=== PATIENT | male | born 1960 | race Caucasian/White ===

== ENCOUNTER 2018-08-27 15:48 | Inpatient (IN) | payer BC, SELFPAY ==
[2018-08-27] VITALS (17 sets, daily range): BP systolic 123–145; BP diastolic 68–96; PULSE 97–109; RESP 18–20; TEMP 36.4–37; O2SAT 83–100
--- NOTE | 2018-08-27 15:51 | W.ED.GENAD ---
Discharge Plan Disposition Patient Disposition: [facility] INPATIENT Condition: Fair Discharge Details Chief Complaint: Orthopedic Clinical Impression: Fracture tibia/fibula Reason For Visit: CLOSED FX R TIB/FIB Admit Date/Time: 08/27/18 17:17 Admit Provider: Robert Kirk Attending Provider: Robert Kirk Primary Care Provider: DANIEL MEDEROS ED Provider: Nina Gaxiola Discharge Data Discharge Date/Time-TO BE ENTERED AT DEPARTURE: 08/27/18 18:44 Medical Decision Making Patient is a 57 year old male with history of well controlled diabetes and peripheral neuropathy, presenting via EMS with c/c of RLE pain. 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 Skis did release. Reports rotational injury to the RLE. Unable to bear weight. Notable deformity to the distal 1/3 of the tibia with clear movement of the fracture site. He is able to lift up the leg, pain with rotational movements. Appears comfortable when supported. Patient has no sensation in BLE at baseline associated with diabetic neuropathy. He is currently on trial of Naltrexone which he reports he is using, through advisement of [facility], for his neuropathy. Denies other injury at the time of the incident. Was helmeted, no head injury, no neck or back pain, no LOC. Distal pulses intact. As patient is on Naltrexone, medications for pain is limited. Will give Tylenol. Will discuss toradol with orthopedics and consult with Pain Center at [facility] regarding Naltrexone. Reviewed XR, patient has spiral fracture of the distal 1/3 tibia and fibula. Knee and ankle appear intact. Atherosclerotic changes noted. Consulted with Dr. Kirk, he advised that patient will need admission, pain control, immobilization with plan for surgical intervention tomorrow. Discussed use of Toradol, he advised that this would be acceptable. XR read by radiology: FINDINGS: Bones/joints: There is a nondisplaced spiral fracture of the distal tibia diaphysis with minimal anterior medial angulation. There is an oblique/spiral fracture of the distal fibula metadiaphyseal junction with approximately 1/2 shaft width of anterior medial displacement. The knee and ankle joints are intact. Mild degenerative arthrosis of the knee and ankle joints. Small knee joint effusion. Soft tissues: Normal. Vasculature: Atherosclerosis throughout the calf. Other findings: Changes of prior anterior cruciate ligament repair. IMPRESSION: Acute fractures of the distal tibia and fibula. Consulted with Pain at [facility], spoke with Dr. Palmer, who advised that patient is on a very low dose of Naltrexone and that we would be able to break through the blockade with a slightly increased dose of narcotics if needed over the next 8-12 hours. Advised holding doses postoperatively, may begin Naltrexone again once cleared from narcotics for 24 hours. Advised that over the next 12 hours, if narcotics are needed to monitor with pulse ox. Dr. Kirk evaluated the patient, discussed surgery, places Spangler splint. Has asked the patient receive CT to ensure no violation of the ankle joint, this order has been placed and will be obtained while in the ED. He will admit patient overnight with plan for surgery tomorrow. HPI General Mode of arrival: EMS. Date/Time Provider Initiated Documentation: 08/27/18 15:51. Limitations to Documentation: no limitations. Information obtained by: patient. History of Present Illness 57 year old M presents to the emergency department with the chief complaint of RLE skiing injury, described as severe, with intensity rated at 10. Quality is described as stabbing, and is localized to the right and lower extremity. Patient reports no radiation. Patient started experiencing this minute(s) and it has been constant. Immobilization improves symptom(s), Movement worsens symptoms . Patient notes denies chest pain, cough, fever/chills, headaches, nausea/vomiting, rash and shortness of breath. Patient did receive the following treatments prior to arrival, splint Related Data Home Medications Medication Instructions Recorded Confirmed acetaminophen [Tylenol Arthritis 650 mg PO BID 08/27/18 08/27/18 Pain] dulaglutide [Trulicity] 1.5 mg SUBCUT QWEEK 08/27/18 08/27/18 duloxetine [Cymbalta] 30 mg PO BID 08/27/18 08/27/18 insulin lispro [Humalog U-100 70 unit SUBCUT DAILY 08/27/18 08/27/18 Insulin] lisinopril 20 mg PO DAILY 08/27/18 08/27/18 naltrexone 4.5 mg PO DAILY 08/27/18 08/27/18 pregabalin [Lyrica] 100 mg PO BID 08/27/18 08/27/18 simvastatin [Zocor] 20 mg PO QPM 08/27/18 08/27/18 Allergies Allergy/AdvReac Type Severity Reaction Status Date / Time Penicillins Allergy Unverified 08/27/18 15:57 Review of Systems Constitutional Reports as per HPI, Denies chills, Denies fever(s) and Denies headache(s) Eyes Denies change in vision ENT Denies headache(s) Cardiovascular Reports as per HPI and Denies syncope Respiratory Reports as per HPI and Denies cough Gastrointestinal Denies abdominal pain, Denies nausea and Denies vomiting Musculoskeletal Reports as per HPI, Reports abnormal gait (has not ambulated since injury) and Reports numbness (chronic severe bilateral lower extremity neuropathy) Integumentary/Breasts Reports as per HPI, Denies rash and Denies wounds Neurologic Reports abnormal gait (has not ambulated since injury), Denies syncope, Denies headache(s) and Reports numbness (chronic severe bilateral lower extremity neuropathy) PFS Social History Smoking/Tobacco Use Status: Never Exam Const General: cooperative, healthy appearing, comfortable, no acute distress, well developed and well groomed Nutritional Appearance: well nourished and overweight Orientation: alert and awake Eyes General: appearance normal, both eyes and all related structures Neck Neck: normal visual inspection, full ROM, trachea midline and supple Chest Chest: normal inspection of the chest, normal palpation of entire chest wall, no crepitus and no localized rib tenderness Resp Effort & Inspection: normal respiratory effort, able to speak in complete sentences and no respiratory distress Auscultation: clear to auscultation bilaterally Cardio Rate: regular rate Rhythm: regular rhythm Heart Sounds: S1 normal and S2 normal Back/Spine/Pelvis Cervical Spine: normal cervical lordosis and cervical ROM normal Thoracic/Lumbar Spine: thoracic and lumbar spine normal to inspection, No thoracic spinal tenderness and No lumbar spinal tenderness Pelvis: no pain with anterior-posterior compression and no pain with lateral compression Skin General skin exam: other (cracked skin to right foot, appears old) Neuro General: alert, awake and oriented x3 Cranial Nerves: CN's II-XI intact bilaterally Cognition: normal cognition Speech: speech normal Gait: gait abnormal (unable to bear weight on RLE) Motor: tone not normal throughout (limited in RLE secondary to deformity and pain. Able to hold up leg well), no pronator drift, no movement abnormalities noted and no fasciculations Sensory Exam: no sensory deficits noted Extrem Right lower extremity: normal capillary refill, no joint enlargement, hip/thigh Details: normal to inspection, knee (did not range, no pain with palpation) Details: normal to inspection, lower leg (deformity), ankle (limited ROM, pain in distal tibia) and foot Details: normal capillary refill; abnormal to inspection (crack in skin as above); abnormal to inspection (deformity to the lower 1/3 of the tibia. No opening in the skin, no discolo), ROM limited (limited ankle secondary to injury) and no edema Psych Appearance: grossly normal and well kempt Mental Status: mental status grossly normal Speech and Movement: speech and movement normal
--- NOTE | 2018-08-27 16:00 | DI.RAD_ITS ---
SYMPTOM/DIAGNOSIS: TRAUMA RIGHT LEG: A mildly displaced spiral fracture of the distal shaft and metaphysis of the tibia is demonstrated. Also there is a moderately displaced oblique fracture of the distal fibula. Incidental note is made of vascular calcification below the knee and in the mid and distal leg. Query: Is the patient a diabetic? In addition, we have images of the right knee showing the patient is status post ACL repair. There are moderate degenerative changes involving the knee. There is no evidence of an acute fracture or dislocation.
--- NOTE | 2018-08-27 16:16 | ED.GENADUL_ITS ---
Discharge Plan Disposition Patient Disposition: [facility] INPATIENT Condition: Fair Discharge Details Chief Complaint: Orthopedic Clinical Impression: Fracture tibia/fibula Reason For Visit: CLOSED FX R TIB/FIB Admit Date/Time: 08/27/18 17:17 Admit Provider: Robert Kirk Attending Provider: Robert Kirk Primary Care Provider: DANIEL MEDEROS ED Provider: Nina Gaxiola Discharge Data Discharge Date/Time-TO BE ENTERED AT DEPARTURE: 08/27/18 18:44 Medical Decision Making Patient is a 57 year old male with history of well controlled diabetes and peripheral neuropathy, presenting via EMS with c/c of RLE pain. 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 Skis did release. Reports rotational injury to the RLE. Unable to bear weight. Notable deformity to the distal 1/3 of the tibia with clear movement of the fracture site. He is able to lift up the leg, pain with rotational movements. Appears comfortable when supported. Patient has no sensation in BLE at baseline associated with diabetic neuropathy. He is currently on trial of Naltrexone which he reports he is using, through advisement of [facility], for his neuropathy. Denies other injury at the time of the incident. Was helmeted, no head injury, no neck or back pain, no LOC. Distal pulses intact. As patient is on Naltrexone, medications for pain is limited. Will give Tylenol. Will discuss toradol with orthopedics and consult with Pain Center at [facility] regarding Naltrexone. Reviewed XR, patient has spiral fracture of the distal 1/3 tibia and fibula. Knee and ankle appear intact. Atherosclerotic changes noted. Consulted with Dr. Kirk, he advised that patient will need admission, pain control, immobilization with plan for surgical intervention tomorrow. Discussed use of Toradol, he advised that this would be acceptable. XR read by radiology: FINDINGS: Bones/joints: There is a nondisplaced spiral fracture of the distal tibia diaphysis with minimal anterior medial angulation. There is an oblique/spiral fracture of the distal fibula metadiaphyseal junction with approximately 1/2 shaft width of anterior medial displacement. The knee and ankle joints are intact. Mild degenerative arthrosis of the knee and ankle joints. Small knee joint effusion. Soft tissues: Normal. Vasculature: Atherosclerosis throughout the calf. Other findings: Changes of prior anterior cruciate ligament repair. IMPRESSION: Acute fractures of the distal tibia and fibula. Consulted with Pain at [facility], spoke with Dr. Palmer, who advised that patient is on a very low dose of Naltrexone and that we would be able to break through the blockade with a slightly increased dose of narcotics if needed over the next 8- 12 hours. Advised holding doses postoperatively, may begin Naltrexone again once cleared from narcotics for 24 hours. Advised that over the next 12 hours, if narcotics are needed to monitor with pulse ox. Dr. Kirk evaluated the patient, discussed surgery, places Spangler splint. Has asked the patient receive CT to ensure no violation of the ankle joint, this order has been placed and will be obtained while in the ED. He will admit patient overnight with plan for surgery tomorrow. HPI General Mode of arrival: EMS . Date/Time Provider Initiated Documentation: 08/27/18 15:51 . Limitations to Documentation: no limitations . Information obtained by: patient . History of Present Illness 57 year old M presents to the emergency department with the chief complaint of RLE skiing injury, described as severe, with intensity rated at 10. Quality is described as stabbing, and is localized to the right and lower extremity. Patient reports no radiation. Patient started experiencing this minute(s) and it has been constant. Immobilization improves symptom(s), Movement worsens symptoms . Patient notes denies chest pain, cough, fever/chills, headaches, nausea/vomiting, rash and shortness of breath. Patient did receive the following treatments prior to arrival, splint Related Data Home Medications Medication Instructions Recorded Confirmed acetaminophen [Tylenol Arthritis 650 mg PO BID 08/27/18 08/27/18 Pain] dulaglutide [Trulicity] 1.5 mg SUBCUT QWEEK 08/27/18 08/27/18 duloxetine [Cymbalta] 30 mg PO BID 08/27/18 08/27/18 insulin lispro [Humalog U-100 70 unit SUBCUT DAILY 08/27/18 08/27/18 Insulin] lisinopril 20 mg PO DAILY 08/27/18 08/27/18 naltrexone 4.5 mg PO DAILY 08/27/18 08/27/18 pregabalin [Lyrica] 100 mg PO BID 08/27/18 08/27/18 simvastatin [Zocor] 20 mg PO QPM 08/27/18 08/27/18 Allergies Allergy/AdvReac Type Severity Reaction Status Date / Time Penicillins Allergy Unverified 08/27/18 15:57 Review of Systems Constitutional Reports as per HPI, Denies chills, Denies fever(s) and Denies headache(s) Eyes Denies change in vision ENT Denies headache(s) Cardiovascular Reports as per HPI and Denies syncope Respiratory Reports as per HPI and Denies cough Gastrointestinal Denies abdominal pain, Denies nausea and Denies vomiting Musculoskeletal Reports as per HPI, Reports abnormal gait (has not ambulated since injury) and Reports numbness (chronic severe bilateral lower extremity neuropathy) Integumentary/Breasts Reports as per HPI, Denies rash and Denies wounds Neurologic Reports abnormal gait (has not ambulated since injury), Denies syncope, Denies headache(s) and Reports numbness (chronic severe bilateral lower extremity neuropathy) PFS Social History Smoking/Tobacco Use Status: Never Exam Const General: cooperative, healthy appearing, comfortable, no acute distress, well developed and well groomed Nutritional Appearance: well nourished and overweight Orientation: alert and awake Eyes General: appearance normal, both eyes and all related structures Neck Neck: normal visual inspection, full ROM, trachea midline and supple Chest Chest: normal inspection of the chest, normal palpation of entire chest wall, no crepitus and no localized rib tenderness Resp Effort & Inspection: normal respiratory effort, able to speak in complete sentences and no respiratory distress Auscultation: clear to auscultation bilaterally Cardio Rate: regular rate Rhythm: regular rhythm Heart Sounds: S1 normal and S2 normal Back/Spine/Pelvis Cervical Spine: normal cervical lordosis and cervical ROM normal Thoracic/Lumbar Spine: thoracic and lumbar spine normal to inspection, No thoracic spinal tenderness and No lumbar spinal tenderness Pelvis: no pain with anterior-posterior compression and no pain with lateral c ompression Skin General skin exam: other (cracked skin to right foot, appears old) Neuro General: alert, awake and oriented x3 Cranial Nerves: CN's II-XI intact bilaterally Cognition: normal cognition Speech: speech normal Gait: gait abnormal (unable to bear weight on RLE) Motor: tone not normal throughout (limited in RLE secondary to deformity and pain. Able to hold up leg well), no pronator drift, no movement abnormalities noted and no fasciculations Sensory Exam: no sensory deficits noted Extrem Right lower extremity: normal capillary refill, no joint enlargement, hip/thigh Details: normal to inspection, knee (did not range, no pain with palpation) Details: normal to inspection, lower leg (deformity), ankle (limited ROM, pain in distal tibia) and foot Details: normal capillary refill; abnormal to inspection (crack in skin as above); abnormal to inspection (deformity to the lower 1/3 of the tibia. No opening in the skin, no discolo), ROM limited (limited ankle secondary to injury) and no edema Psych Appearance: grossly normal and well kempt Mental Status: mental status grossly normal Speech and Movement: speech and movement normal
[2018-08-27] MEDS: Acetaminophen 500 MG TAB 1000 MG PO (16:31)
--- NOTE | 2018-08-27 16:42 | DI.VRAD_ITS ---
EXAM: XR Right Tibia and Fibula, 2 Views EXAM DATE/TIME: 08/27/2018 4:02 PM CLINICAL HISTORY: 57 years old, male; Injury or trauma; Fall; Initial encounter; Sprain or strain; Lower leg; Right TECHNIQUE: XR Right tibia and fibula 2 views COMPARISON: No relevant prior studies available. FINDINGS: Bones/joints: There is a nondisplaced spiral fracture of the distal tibia diaphysis with minimal anterior medial angulation. There is an oblique/spiral fracture of the distal fibula metadiaphyseal junction with approximately 1/2 shaft width of anterior medial displacement. The knee and ankle joints are intact. Mild degenerative arthrosis of the knee and ankle joints. Small knee joint effusion. Soft tissues: Normal. Vasculature: Atherosclerosis throughout the calf. Other findings: Changes of prior anterior cruciate ligament repair. IMPRESSION: Acute fractures of the distal tibia and fibula. Dictated and Authenticated by: Canelo Uriarte MD. Ordering:MESERET Wood MD
--- NOTE | 2018-08-27 16:55 | DI.CT_ITS ---
SYMPTOM/DIAGNOSIS: FX RIGHT LEG CT: There is a fracture which is at the metadiaphyseal junction with approximately one half shaft width anterior and medial displacement. The knee and ankle joints are intact. There are mild degenerative changes involving the knee and ankle. Note is made of a small joint effusion. Note is also made of a lucency traversing the medial malleolus at the level of the medial angle of the talar dome which is not associated with significant swelling which could however represent an acute nondisplaced fracture. The findings should be correlated with the patient's clinical status and if there is any further clinical question, then an MRI could be considered for further review. The soft tissues are normal. Atherosclerotic changes are noted throughout the calf. The patient is status post anterior cruciate ligament repair. SUMMARY: Acute fractures of the distal tibia and fibula as described above.
[2018-08-27] MEDS: Ketorolac 30 MG/ML VIAL IVP ×2 (16:56→21:57)
--- NOTE | 2018-08-27 17:21 | NUR.NOTE ---
splint placed on right lower leg by orthopedic doctor with assist of one pt didn't tolerant well. pt family in the rm at this time Nursing Note:
--- NOTE | 2018-08-27 18:16 | NUR.NOTE ---
pt stated that he isn't hungry at this time and dosen't want pain meds or nausea meds at this time pt given crackers and peanut butter with general Nursing Note:
--- NOTE | 2018-08-27 18:52 | DI.VRAD_ITS ---
EXAM: CT Right Lower Extremity Without IV Contrast, Tibia Fibula EXAM DATE/TIME: 08/27/2018 4:55 PM CLINICAL HISTORY: 57 years old, male; Signs and symptoms; Other: Fracture TECHNIQUE: CT of the Right lower extremity without intravenous contrast was performed. Exam focused on the tibia and fibula. All CT scans at this facility use at least one of these dose optimization techniques: automated exposure control; mA and/or kV adjustment per patient size (includes targeted exams where dose is matched to clinical indication); or iterative reconstruction. Coronal and sagittal reformatted images were created and reviewed. COMPARISON: CR XR tib/fib RT 08/27/2018 4:16 PM FINDINGS: Bones/joints: Consistent with plain films spiral fractures of the distal tibia and fibula are noted. There is 2 mm of medial displacement of the more distal tibia and overriding with up to 9 mm of medial displacement of the distal fibula. Fracture of the tibia is also seen extending into the tibiotalar joint. Status post ACL repair Soft tissues: Superficial edema is present Vasculature: Atherosclerosis. IMPRESSION: Fractures of the distal fibula and tibia with intra-articular extension of the tibial fracture at the tibiotalar joint. Dictated and Authenticated by: Mor Barrera MD. Ordering:MESERET Wood MD
--- NOTE | 2018-08-27 19:04 | NUR.NOTE ---
Nursing Note: Patient blood sugar on arrival with our insulin pump was 304, pump bolus 6.5 units administered via insulin pump
[2018-08-27] MEDS: DULoxetine 30 MG CAP PO (20:22)
[2018-08-27] MEDS: Simvastatin 20 MG TAB PO (20:22)
[2018-08-27] MEDS: Pregabalin 100 MG CAP PO (20:22)
[2018-08-28] VITALS (12 sets, daily range): BP systolic 100–122; BP diastolic 55–74; PULSE 82–98; RESP 13–20; TEMP 36.2–36.7; O2SAT 92–98
[2018-08-28] MEDS: Normal Saline Flush 10 ML SYR IVP ×5 (01:57→22:56)
[2018-08-28] MEDS: Normal Saline Flush 10 ML SYR (01:57)
[2018-08-28] MEDS: Ketorolac 30 MG/ML VIAL IVP ×4 (03:50→22:56)
[2018-08-28 07:31] LABS: HCT 38.8 % (40.0-50.0); HGB 12.9 g/dL (13.5-17.5); Mean Corp. HGB Concentration 33.2 g/dL (32.0-36.0); Mean Corpuscular Hemoglobin 29.5 pg (27.0-33.0); Mean Corpuscular Volume 88.6 fL (80-95); Mean Platelet Volume 9.1 fL (8.0-11.0); Platelet Count 266 x1000/uL (130-400); RBC 4.38 m/cumm (4.50-6.00); RBC Distribution Width 13.4 % (11.8-14.1); White Blood Cell Count 13.56 k/cumm (4.4-10.8)
[2018-08-28 07:42] LABS: Anion Gap 7.4 mmol/L (3-11); BUN 41 mg/dL (7-18); CO2 28.6 mmol/L (21.0-32.0); CREATININE 1.05 mg/dL (0.70-1.30); Calcium 8.6 mg/dL (8.5-10.1); Chloride 104 mmol/L (98-107); Glucose 110 mg/dL (70-100); Potassium 4.6 mmol/L (3.5-5.1); Sodium 140 mmol/L (136-145)
[2018-08-28] MEDS: Pregabalin 100 MG CAP PO ×2 (10:22→19:09)
[2018-08-28] MEDS: DULoxetine 30 MG CAP PO ×2 (10:22→19:09)
[2018-08-28] MEDS: Acetaminophen 325 MG TAB 650 MG PO ×2 (10:22→21:12)
--- NOTE | 2018-08-28 10:59 | NUR.NOTE ---
Nursing Note: Pt has insulin pump. manages his own blood sugars and insulin dosing. Nursing asked him to please communicate blood glucose levels and any insulin doses he gives himself.
--- NOTE | 2018-08-28 11:03 | PHARADMIT ---
Admission Pharmacy Clinical Review CLOSED FRACTURE, TIB/FIB ( to OR today 08/28/18) Code Status Full Code Current Weight Wgt-80 kg Renally Cleared and Narrow Therapeutic Index Meds CrCl~ 70 mL/min Meds-OK QTc Value / Action Taken NA BP Control, Fever BP- 120/68 Tmax- 37C Electrolytes reviewed Na- 140 K+4.6 DVT Prophylaxis None (going to OR) Opiate Usage / Scheduled Bowel Regimen Ordered Yes No Plt/SCr for Heparin / Enoxaparin Plts-266 SCr-1.05 INR for Warfarin NA H/H stable, WBC/Bands H&H- 12.9/38.8 WBC- 13.56 Antibiotic appropriateness none Cultures and Sensitivities none Surgical ABX d/c within 24 hr na DM control / Insulin Dosing BG- 110 Heart Failure (Check EF%) (DENNIS's, B-Block, Diuretics) Lisinopril IV to PO Switch No Home Meds Reviewed Yes Home Meds Not Ordered Naltrexone Comments Kaden Levi Weekly & Insulin Pump
[2018-08-28] MEDS: Normal Saline 1,000 ML 60 ML IV (11:23)
--- NOTE | 2018-08-28 11:40 | W.PREOPHP ---
Date of service: 08/28/18 Assessment and Plan (1) Fracture tibia/fibula: Start date: 08/27/18 Current visit: Yes Status: Acute ORIF right tibia. Details of surgery were discussed with patient as well as risks and pertinent anatomy. All questions were answered. Qualifiers: Encounter type: initial encounter Fracture type: closed Laterality: right Qualified Code(s): S82.201A - Unspecified fracture of shaft of right tibia, initial encounter for closed fracture; S82.401A - Unspecified fracture of shaft of right fibula, initial encounter for closed fracture History of Present Illness Narrative: Robert is a 57-year-old male who was skiing yesterday and suffered a right lower leg injury when his skis unexpectedly went into deeper snow, causing him to slow suddenly. He felt significant pain in his right lower leg, and was unable to weight-bear. He went to the emergency room where x-rays were taken, which shows a spiral type fracture of the tibia which is only mildly displaced, as well as a fibula fracture of the distal third. He was then splinted and admitted to the hospital, and awaits ORIF of this fracture. Pertinent Surgical Information Robert states that his diabetes is under control, however it appears that his A1c tends to run in the nines. He also has diabetic neuropathy due to his diabetes. He also takes lisinopril for protective reasonings for his kidneys, even though he does not have hypertension. Patient denies history of hypertension, CVA, NC, angina, asthma, COPD, renal or liver disorders, hepatitis, bleeding disorders, immune or thyroid disorders. No complications from anesthesia. Review of Systems Constitutional Denies fever(s) ENT Denies dizziness and Denies sore throat Cardiovascular Denies chest pain, Denies palpitations and Denies dyspnea Respiratory Denies dyspnea Gastrointestinal Denies abdominal pain, Denies melena, Denies hematochezia, Denies diarrhea, Denies nausea and Denies vomiting Genitourinary Denies hematuria and Denies dysuria Neurologic Denies dizziness Endocrine Denies palpitations [facility] Medical History Diabetic peripheral neuropathy (Chronic) Diabetes type I (Chronic) Depression (Chronic) Surgical History History of laparoscopic appendectomy (Acute) History of reconstruction of anterior cruciate ligament tear (Acute) History of repair of right rotator cuff (Acute) Social History Smoking/Tobacco Use Status: Never Meds Home Medications Medication Instructions Recorded Confirmed Type acetaminophen [Tylenol Arthritis 650 mg PO BID 08/27/18 08/27/18 History Pain] dulaglutide [Trulicity] 1.5 mg SUBCUT QWEEK 08/27/18 08/27/18 History duloxetine [Cymbalta] 30 mg PO BID 08/27/18 08/27/18 History insulin lispro [Humalog U-100 70 unit SUBCUT DAILY 08/27/18 08/27/18 History Insulin] lisinopril 20 mg PO DAILY 08/27/18 08/27/18 History naltrexone 4.5 mg PO DAILY 08/27/18 08/27/18 History pregabalin [Lyrica] 100 mg PO BID 08/27/18 08/27/18 History simvastatin [Zocor] 20 mg PO QPM 08/27/18 08/27/18 History Allergies Allergy/AdvReac Type Severity Reaction Status Date / Time Penicillins Allergy Unverified 08/27/18 15:57 Exam HENWY Head: normocephalic and atraumatic General nose exam: no nasal discharge Throat: uvula midline and no uvular edema Other: soft palate rises symmetrically, no erythema Eyes Conjunctivae: conjunctivae normal Sclera: sclerae normal Pupils: PERRL Resp Effort & Inspection: normal respiratory effort Auscultation: clear to auscultation bilaterally and no wheezes Cardio Rate: regular rate Rhythm: regular rhythm Heart Sounds: S1 normal, S2 normal and no murmurs Results Labs : 08/28/18 07:00 08/28/18 07:00 Laboratory Results - last 24 hr 08/28/18 08/28/18 07:00 07:00 WBC 13.56 H RBC 4.38 L Hgb 12.9 L Hct 38.8 L MCV 88.6 MCH 29.5 MCHC 33.2 RDW 13.4 Plt Count 266 MPV 9.1 Sodium 140 Potassium 4.6 Chloride 104 Carbon Dioxide 28.6 Anion Gap 7.4 BUN 41 H Creatinine 1.05 Estimated GFR/1.73 m2 >= 60.00 Glucose 110 H Calcium 8.6 Last Vital Signs Temp 36.5 C 08/28/18 08:10 Pulse 91 H 08/28/18 08:10 Resp 18 08/28/18 08:10 BP 120/68 08/28/18 08:10 Pulse Ox 96 08/28/18 08:10
--- NOTE | 2018-08-28 11:53 | HPE_ITS ---
Date of service: 08/28/18 Assessment and Plan (1) Fracture tibia/fibula: Start date: 08/27/18 Current visit: Yes Status: Acute ORIF right tibia. Details of surgery were discussed with patient as well as risks and pertinent anatomy. All questions were answered. Qualifiers: Encounter type: initial encounter Fracture type: closed Laterality: right Qualified Code(s): S82.201A - Unspecified fracture of shaft of right tibia, initial encounter for closed fracture; S82.401A - Unspecified fracture of shaft of right fibula, initial encounter for closed fracture History of Present Illness Narrative: Robert is a 57-year-old male who was skiing yesterday and suffered a right lower leg injury when his skis unexpectedly went into deeper snow, causing him to slow suddenly. He felt significant pain in his right lower leg, and was unable to weight-bear. He went to the emergency room where x-rays were taken, which shows a spiral type fracture of the tibia which is only mildly displaced, as well as a fibula fracture of the distal third. He was then splinted and admitted to the hospital, and awaits ORIF of this fracture. Pertinent Surgical Information Robert states that his diabetes is under control, however it appears that his A1c tends to run in the nines. He also has diabetic neuropathy due to his diabetes. He also takes lisinopril for protective reasonings for his kidneys, even though he does not have hypertension. Patient denies history of hypertension, CVA, ND, angina, asthma, COPD, renal or liver disorders, hepatitis, bleeding disorders, immune or thyroid disorders. No complications from anesthesia. Review of Systems Constitutional Denies fever(s) ENT Denies dizziness and Denies sore throat Cardiovascular Denies chest pain, Denies palpitations and Denies dyspnea Respiratory Denies dyspnea Gastrointestinal Denies abdominal pain, Denies melena, Denies hematochezia, Denies diarrhea, Denies nausea and Denies vomiting Genitourinary Denies hematuria and Denies dysuria Neurologic Denies dizziness Endocrine Denies palpitations [facility] Medical History Diabetic peripheral neuropathy (Chronic) Diabetes type I (Chronic) Depression (Chronic) Surgical History History of laparoscopic appendectomy (Acute) History of reconstruction of anterior cruciate ligament tear (Acute) History of repair of right rotator cuff (Acute) Social History Smoking/Tobacco Use Status: Never Meds Home Medications Medication Instructions Recorded Confirmed Type acetaminophen [Tylenol Arthritis 650 mg PO BID 08/27/18 08/27/18 History Pain] dulaglutide [Trulicity] 1.5 mg SUBCUT QWEEK 08/27/18 08/27/18 History duloxetine [Cymbalta] 30 mg PO BID 08/27/18 08/27/18 History insulin lispro [Humalog U-100 70 unit SUBCUT DAILY 08/27/18 08/27/18 History Insulin] lisinopril 20 mg PO DAILY 08/27/18 08/27/18 History naltrexone 4.5 mg PO DAILY 08/27/18 08/27/18 History pregabalin [Lyrica] 100 mg PO BID 08/27/18 08/27/18 History simvastatin [Zocor] 20 mg PO QPM 08/27/18 08/27/18 History Allergies Allergy/AdvReac Type Severity Reaction Status Date / Time Penicillins Allergy Unverified 08/27/18 15:57 Exam HENNJ Head: normocephalic and atraumatic General nose exam: no nasal discharge Throat: uvula midline and no uvular edema Other: soft palate rises symmetrically, no erythema Eyes Conjunctivae: conjunctivae normal Sclera: sclerae normal Pupils: PERRL Resp Effort & Inspection: normal respiratory effort Auscultation: clear to auscultation bilaterally and no wheezes Cardio Rate: regular rate Rhythm: regular rhythm Heart Sounds: S1 normal, S2 normal and no murmurs Results Labs : 08/28/18 07:00 08/28/18 07:00 Laboratory Results - last 24 hr 08/28/18 08/28/18 07:00 07:00 WBC 13.56 H RBC 4.38 L Hgb 12.9 L Hct 38.8 L MCV 88.6 MCH 29.5 MCHC 33.2 RDW 13.4 Plt Count 266 MPV 9.1 Sodium 140 Potassium 4.6 Chloride 104 Carbon Dioxide 28.6 Anion Gap 7.4 BUN 41 H Creatinine 1.05 Estimated GFR/1.73 m2 >= 60.00 Glucose 110 H Calcium 8.6 Last Vital Signs Temp 36.5 C 08/28/18 08:10 Pulse 91 H 08/28/18 08:10 Resp 18 08/28/18 08:10 BP 120/68 08/28/18 08:10 Pulse Ox 96 08/28/18 08:10
[2018-08-28] MEDS: Lactated Ringers 1,000 ML 30 ML IV ×2 (12:52→15:05)
--- NOTE | 2018-08-28 15:33 | DI.RAD_ITS ---
SYMPTOMS/DIAGNOSIS: CHECK REDUCTION FOLLOWING INTRAMEDULLARY NAILING RIGHT LEG: Fractures of the distal tibia and fibula are demonstrated in this patient. The AP and lateral images were obtained in connection with ministerio and screw fixation of the tibia, the bony fragments in essentially anatomical position. A faint radiolucency is again noted involving the medial malleolus and once again I could not exclude a nondisplaced fracture. RIGHT LEG: Intraoperative images were obtained during positioning of a tibial intramedullary ministerio and screw fixation device with excellent position of the distal tibial fracture fragments.
[2018-08-28] MEDS: Normal Saline 1,000 ML 125 ML IV (17:09)
--- NOTE | 2018-08-28 17:57 | CHAPLAIN ---
I visited Robert this morning, he was waiting for his surgery and said his skiing season was cut short by this injury, but he'd already skiied 24 days, and he said he was happy with that. He didn't expect to have any visitors today but seemed to be comfortable being here.
--- NOTE | 2018-08-28 19:04 | PDOC.CMIN ---
Care Management Initial Assess REASON FOR HOSPITALIZATION:: Closed FX R TIB/FIB PAST MEDICAL HISTORY/PAST SURGICAL HISTORY:: Diabetic peripheral neuropathy (Chronic). Diabetes type I (Chronic) Insulin dependent. Depression (Chronic). History of laparoscopic appendectomy (Acute). History of reconstruction of anterior cruciate ligament tear (Acute). History of repair of right rotator cuff (Acute) PREVIOUS FUNCTIONAL STATUS/SOCIAL/FAMILY SUPPORTS:: Robert resides in [place] with his , Jose. He is active and independent with all ADLs in the community. 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 CURRENT FUNCTIONAL STATUS:: Robert is transferring back to bed as he had surgical intervention in the OR with Dr. Kirk today; CM will continue to follow. ADVANCE DIRECTIVES:: None on file at [facility]. Has patient been provided with information about the portal?: No Did the patient sign up for the portal?: No CODE STATUS:: Full Code INSURANCE COVERAGE / FINANCIAL ISSUES:: BC/BS CURRENT HOME/COMMUNITY SERVICES/EQUIPMENT:: [employer] PRIMARY CARE PHYSICIAN:: Vera Pisano POTENTIAL DISCHARGE NEEDS:: Evaluation for further discharge needs including likely PT/OT. PATIENT/FAMILY EDUCATION NEEDS:: Review of discharge instructions, discuss self care needs upon discharge. ANTICIPATED BARRIERS TO DISCHARGE:: None identified. TRANSPORTATION:: Via private vehicle with his . PLAN:: Robert will discharge home when ready per MD undetermined if he will require VNA supports upon discharge; evaluations forthcoming. Robert will follow up with surgical services, his PCP and plan of care as prescribed including activity restrictions and medication recommendations. He will transport via private vehicle with his .
[2018-08-28] MEDS: Simvastatin 20 MG TAB PO (19:09)
--- NOTE | 2018-08-28 19:14 | INITIAL_ITS ---
Care Management Initial Assess REASON FOR HOSPITALIZATION:: Closed FX R TIB/FIB PAST MEDICAL HISTORY/PAST SURGICAL HISTORY:: Diabetic peripheral neuropathy (Chronic). Diabetes type I (Chronic) Insulin dependent. Depression (Chronic). History of laparoscopic appendectomy (Acute). History of reconstruction of anterior cruciate ligament tear (Acute). History of repair of right rotator cuff (Acute) PREVIOUS FUNCTIONAL STATUS/SOCIAL/FAMILY SUPPORTS:: Robert resides in [place] with his , Jose. He is active and independent with all ADLs in the community. 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 CURRENT FUNCTIONAL STATUS:: Robert is transferring back to bed as he had surgical intervention in the OR with Dr. Kirk today; CM will continue to follow. ADVANCE DIRECTIVES:: None on file at [facility]. Has patient been provided with information about the portal?: No Did the patient sign up for the portal?: No CODE STATUS:: Full Code INSURANCE COVERAGE / FINANCIAL ISSUES:: BC/BS CURRENT HOME/COMMUNITY SERVICES/EQUIPMENT:: [employer] PRIMARY CARE PHYSICIAN:: Vera Pisano POTENTIAL DISCHARGE NEEDS:: Evaluation for further discharge needs including likely PT/OT. PATIENT/FAMILY EDUCATION NEEDS:: Review of discharge instructions, discuss self care needs upon discharge. ANTICIPATED BARRIERS TO DISCHARGE:: None identified. TRANSPORTATION:: Via private vehicle with his . PLAN:: Robert will discharge home when ready per MD undetermined if he will require VNA supports upon discharge; evaluations forthcoming. Robert will follow up with surgical services, his PCP and plan of care as prescribed including activity restrictions and medication recommendations. He will transport via private vehicle with his .
--- NOTE | 2018-08-28 21:15 | ROE_ITS ---
DATE OF PROCEDURE: August 27, 2018 PREOPERATIVE DIAGNOSIS: Closed fracture of right tibia and fibula. POSTOPERATIVE DIAGNOSIS: Closed fracture of right tibia and fibula. PROCEDURE: Closed intramedullary nailing of fracture right tibia and fibula. SURGEON: Robert Kirk M.D. ACID MAKER: Luis E Mo M.D. ANESTHESIA: General, oNe Booker CRNA INDICATIONS: This is a 57-year-old white male who had a closed fracture of the distal third of the t ibia and fibula in a skiing accident yesterday. The fracture was a long spiral and it had a mild beny unt of shortening and angulation. Closed intramedullary nailing was recommended as optimum treatment to stabilize the fracture in good position. The risks and complications of the procedure were expla ined to the patient in detail preoperatively. The patient was admitted for pain control overnight af ter splinting his leg. PROCEDURE: The patient was taken to the Operating Room on 08/27/18. He was placed supine on the oper ating table and a general anesthetic was administered. Once good anesthesia was obtained, the splint and dressings were removed. There was only mild swelling present and no skin blisters. The right l ower extremity was then prepped from toes to a proximal tourniquet on his thigh and draped free in th e usual sterile fashion. Under proximal tourniquet control, an anterolateral incision was made along the lateral border of the patellar tendon beginning at the tibial tubercle and extending proximally along the lateral border of the patella to the superior pole of the patella. The incision was nicole d down to the retinaculum. The retinaculum was then longitudinally incised along a line with the ski n incision. Care was taken to incise the retinaculum only. The synovium was not incised. This was an extrasynovial approach. The right lower extremity was then positioned on supports so that the kne e was in a semi-extended position for the procedure. An awl was then used to make a proximal entry hole into the tibial canal. The C-arm image intensifie r was used to position the awl properly in AP and lateral views to make the entrance hole. Once the entrance hole was completed, I then used a bulb-tipped guidewire and passed it down the tibial canal. Dr. Prohaska then secured a closed reduction with one large reduction forceps placed percutaneously on the tibia. The fracture was checked with the C-arm image intensifier and was found to be essenti ally anatomically reduced in proper rotation. I then was able to pass the bulb-tipped guidewire acro ss the fracture side distally to the distal epiphyseal scar. Serial reaming was then performed in th e semi-extended position up to 12.5 mm. The length was measured and I felt that a 345 mm x 11 mm madi meter nail was the proper size. The proximal guide was applied to the nail and then the nail was dri kike down the femoral canal. The fracture site was visualized and as the nail was passed across it th ere was no disruption of the reduction. The C-arm was then used to visualize the nail as it was driv en into its final position at the distal epiphyseal scar. There was noted preoperatively to be an un displaced medial malleolar fracture. This did not displace during insertion of the nail. At this po int, two interlocking screws were placed distally through the nail and two stab wounds in the distal tibia. One was the anterior posterior and one was medial lateral. With the distal locking screws in place, I did not feel that I had to put any more compression across the fracture. I then proceeded to lock the nail proximally using the proximal locking guide. The holes used were both lateral and o ne was a dynamic hole and one was a static hole. Appropriate-length locking screws were used proxima lly and distally. Good length of the screws and good position of the nail were verified with the C-a rm image intensifier. The length of the nail was good and it did not need an extension. The proxima l guide was then removed. The anterolateral incision and the stab wound incisions were then irrigated with Betadine and saline solution. All of the incisions were infiltrated with 0.5% Marcaine with epinephrine solution down to periosteal bone. In the proximal anterolateral incision the infiltration with 0.5% Marcaine with ep inephrine solution was carried down to the synovial membrane into the anterior fat pad. The lateral retinaculum was approximated with running interlocked #1 Vicryl suture material. The skin and subcu were then approximated with skin joseline. The stab wounds for the interlocking screws were all appro ximated with skin joseline. The wounds were dressed with Xeroform gauze, sterile gauze 4x4s, with an ABD pad over the knee incision, and then this was held on with Kerlix 4 inch. I then applied a Spangler compressive dressing that extended proximal to the patella. I then placed a posterior fiberglass sp lint that did not extend proximal to the popliteal fossa and allowed the knee to flex. The splint wa s held on with 6-inch Bertin bandages. The tourniquet was inflated only until the guide pin was passed and was deflated before reaming occurred. Hemostasis of the anterolateral incision was obtained with electrocautery. At this point, the patient's anesthesia was reversed without complications. He was discharged to the Recovery Room in good condition. Estimated blood loss was about 150 cc.
[2018-08-29 01:26] VITALS: BP 141/73; PULSE 98; RESP 18; TEMP 36.2; O2SAT 94
[2018-08-29] MEDS: Ketorolac 30 MG/ML VIAL IVP ×2 (04:01→10:14)
[2018-08-29 04:44] VITALS: BP 134/73; PULSE 95; RESP 15; TEMP 36.5; O2SAT 97
[2018-08-29 05:23] VITALS: O2SAT 95
[2018-08-29 07:32] LABS: HCT 32.4 % (40.0-50.0); HGB 10.7 g/dL (13.5-17.5); Mean Corpuscular Hemoglobin 29.6 pg (27.0-33.0); Mean Corpuscular Volume 89.8 fL (80-95); Mean Platelet Volume 9.4 fL (8.0-11.0); Platelet Count 282 x1000/uL (130-400); RBC 3.61 m/cumm (4.50-6.00); RBC Distribution Width 13.2 % (11.8-14.1); White Blood Cell Count 19.25 k/cumm (4.4-10.8)
[2018-08-29 07:50] VITALS: BP 134/77; PULSE 94; RESP 20; TEMP 36.8; O2SAT 97
[2018-08-29] MEDS: Pregabalin 100 MG CAP PO (09:06)
[2018-08-29] MEDS: DULoxetine 30 MG CAP PO (09:06)
[2018-08-29] MEDS: Acetaminophen 325 MG TAB 650 MG PO (09:12)
--- NOTE | 2018-08-29 09:17 | PT.INIE ---
Date of service: 08/29/18 Time of Service: 07:50 PT Notes Inpatient Physical Therapy Evaluation Date: 08/29/18 Referring Doctor: Dr. Kirk PT Orders: PT CONSULT: mobilize post-op IM nailing of fx right tib/fib. TDWB right Precautions: TDWB right LE Patient Profile/Admitting Diagnosis: Patient admitted 08/28/18 after ski injury resulting in right tib/fib fracture. He was evaluated by Dr. Kirk, and underwent IM nailing 08/28/18. PMHX: Type 1 DM with neuropathy Social History/Home Situation: Patient lives with his and daughter in a multi-level home. He has 4 RENAE with single rail, and although he sleeps upstairs, he plans to remain on the main floor initially upon returning home. He has used crutches extensively after an ACL reconstruction 2 years ago. 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 Equipment Owned/DME: axillary crutches Subjective: Robert states that he is feeling well this morning. He has no significant pain in the right lower extremity. He states that he is anxious to get up and moving, and plans to return home early this afternoon. He reports some baseline limitations in his mobility related to his peripheral neuropathy. He states that he typically walks short distances and then rests. This does not interfere with his ability to participate in work duties or skiing, but he states that he does limit the amount of walking he does in a single stretch due to lower extremity pain. Objective: General Observation: Resting in bed with IV and LUE. Patient has an insulin pump, which he independently manages. No other lines. Mental Status: A and O x3 Pain: Well managed ROM: Right Upper Extremity: WFL Left Upper Extremity: WFL Right Lower Extremity: Spanglre wrap to right foot and ankle, extending to the level of the knee patient's functionally able to flex the knee to 90 degrees. He is able to independently wiggle toes. Left Lower Extremity: WFL Strength: Right Upper Extremity: WFL Left Upper Extremity: WFL Right Lower Extremity: Patient functionally able to demonstrate active SLR without difficulty. Left Lower Extremity: Hip flexion 5/5. Quads 5/5. Hamstrings 5/5. Ankle dorsiflexion 5/5. Sensation: Impaired, although patient is able to identify light touch to the plantar aspect of the left foot. Bed Mobility/Transfers: Supine to sit: Independent Sit to stand: Independent Stand to sit: Independent Gait: Patient ambulates 100 feet with wheeled walker and touchdown weightbearing right lower extremity. He requires cues for wheeled walker management. Transition him to bilateral axillary crutches, where he is able to ambulate 100 feet with touchdown weightbearing and significantly improved gait mechanics. Stairs: Patient able to manage therapeutic stairs (4 inches x3) with bilateral upper extremity support to rails and intermittent cues, with supervision only. Balance: Static Sitting: Normal Dynamic Sitting: Normal Static Standing: Good Dynamic Standing: Fair Informed Consent/Education: Patient instructed in purpose of PT consult and plan of care. He received gait and transfer training, and we reviewed his weightbearing status extensively. Patient was instructed in SLR for completion 10 repetitions, 3 times a day. Assessment: Patient is a 57 year old male referred to physical therapy services with the diagnosis of tib-fib fracture, 1 days status post IM nailing.. Patient presents with clinical signs and symptoms consistent with postop status. He received gait training and stair training this morning, and demonstrated excellent independence and understanding of weightbearing restrictions. He is appropriate for discharge home, and has crutches previously fitted to him after ACL reconstruction 2 years ago. He currently demonstrates the following impairment level findings: 1. Gait impairments 2. Weightbearing restrictions necessitating use of assistive device 3. Range of motion restrictions based on immobilization postop 4. Diminshed protective sensation related to type I DM Impairments are contributing to the following functional limitations: 1. Gait Impairments 2. Fall risk 3. Decreased tolerance to community distance ambulation Patient is assessed as Low [id number] complexity based on the following: History: 57-year-old male admitted 1 day status post IM nailing for tib-fib fracture. Complicated factors include type 1 diabetes with peripheral neuropathy, and subsequent limitations in tolerance to long distance ambulation at baseline. Examination: Functional limitations as noted above Presentation: stable Decision Making: low complexity Plan of Care/Treatment Plan: DC from PT in acute care setting DISCHARGE RECOMMENDATIONS: Home, with no equipment needs (patient owns axillary crutches) TREATMENT CODE/TIME: 35 minutes ([id number])
--- NOTE | 2018-08-29 09:32 | IN_ITS ---
Date of service: 08/29/18 Time of Service: 07:50 PT Notes Inpatient Physical Therapy Evaluation Date: 08/29/18 Referring Doctor: Dr. Kirk PT Orders: PT CONSULT: mobilize post-op IM nailing of fx right tib/fib. TDWB right Precautions: TDWB right LE Patient Profile/Admitting Diagnosis: Patient admitted 08/28/18 after ski injury resulting in right tib/fib fracture. He was evaluated by Dr. Kirk, and underwent IM nailing 08/28/18. PMHX: Type 1 DM with neuropathy Social History/Home Situation: Patient lives with his and daughter in a multi-level home. He has 4 RENAE with single rail, and although he sleeps upstairs, he plans to remain on the main floor initially upon returning home. He has used crutches extensively after an ACL reconstruction 2 years ago. 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 Equipment Owned/DME: axillary crutches Subjective: Robert states that he is feeling well this morning. He has no significant pain in the right lower extremity. He states that he is anxious to get up and moving, and plans to return home early this afternoon. He reports some baseline limitations in his mobility related to his peripheral neuropathy. He states that he typically walks short distances and then rests. This does not interfere with his ability to participate in work duties or skiing, but he states that he does limit the amount of walking he does in a single stretch due to lower extremity pain. Objective: General Observation: Resting in bed with IV and LUE. Patient has an insulin pump, which he independently manages. No other lines. Mental Status: A and O x3 Pain: Well managed ROM: Right Upper Extremity: WFL Left Upper Extremity: WFL Right Lower Extremity: Spangler wrap to right foot and ankle, extending to the level of the knee patient's functionally able to flex the knee to 90 degrees. He is able to independently wiggle toes. Left Lower Extremity: WFL Strength: Right Upper Extremity: WFL Left Upper Extremity: WFL Right Lower Extremity: Patient functionally able to demonstrate active SLR without difficulty. Left Lower Extremity: Hip flexion 5/5. Quads 5/5. Hamstrings 5/5. Ankle dorsiflexion 5/5. Sensation: Impaired, although patient is able to identify light touch to the plantar aspect of the left foot. Bed Mobility/Transfers: Supine to sit: Independent Sit to stand: Independent Stand to sit: Independent Gait: Patient ambulates 100 feet with wheeled walker and touchdown weightbearing right lower extremity. He requires cues for wheeled walker management. Transition him to bilateral axillary crutches, where he is able to ambulate 100 feet with touchdown weightbearing and significantly improved gait mechanics. Stairs: Patient able to manage therapeutic stairs (4 inches x3) with bilateral upper extremity support to rails and intermittent cues, with supervision only. Balance: Static Sitting: Normal Dynamic Sitting: Normal Static Standing: Good Dynamic Standing: Fair Informed Consent/Education: Patient instructed in purpose of PT consult and plan of care. He received gait and transfer training, and we reviewed his weightbearing status extensively. Patient was instructed in SLR for completion 10 repetitions, 3 times a day. Assessment: Patient is a 57 year old male referred to physical therapy services with the diagnosis of tib-fib fracture, 1 days status post IM nailing.. Patient presents with clinical signs and symptoms consistent with postop status. He received gait training and stair training this morning, and demonstrated excellent independence and understanding of weightbearing restrictions. He is appropriate for discharge home, and has crutches previously fitted to him after ACL reconstruction 2 years ago. He currently demonstrates the following impairment level findings: 1. Gait impairments 2. Weightbearing restrictions necessitating use of assistive device 3. Range of motion restrictions based on immobilization postop 4. Diminshed protective sensation related to type I DM Impairments are contributing to the following functional limitations: 1. Gait Impairments 2. Fall risk 3. Decreased tolerance to community distance ambulation Patient is assessed as Low [id number] complexity based on the following: History: 57-year-old male admitted 1 day status post IM nailing for tib-fib fracture. Complicated factors include type 1 diabetes with peripheral neuropathy, and subsequent limitations in tolerance to long distance ambulation at baseline. Examination: Functional limitations as noted above Presentation: stable Decision Making: low complexity Plan of Care/Treatment Plan: DC from PT in acute care setting DISCHARGE RECOMMENDATIONS: Home, with no equipment needs (patient owns axillary crutches) TREATMENT CODE/TIME: 35 minutes (95811)
--- NOTE | 2018-08-29 10:04 | W.PM.DS.N ---
Date of service: 08/29/18 Time of Service: 10:05 DS: Diagnosis Discharge Diagnosis (1) Fracture tibia/fibula: Status: Acute Discharge Plan Disposition Patient Disposition: HOME Condition: Good Discharge Details Chief Complaint: Orthopedic Clinical Impression: Fracture tibia/fibula Reason For Visit: CLOSED FX R TIB/FIB Admit Date/Time: 08/27/18 17:17 Admit Provider: Robert Kirk Attending Provider: Robert Kirk Primary Care Provider: DANIEL MEDEROS [facility] Hospital Course: Patient was splinted and admitted for planned IM nailing of fx R tib/fib. Pre-op labs were unremarkable. He was taken to the OR on 08/28/18 where he underwent a closed IM nailing of his Fx R tib/fib w/o complications. On 08/29/18, he was afebrile, Vss and eating well. He was not taking any opiods for pain. He was independant with transfers and ambulation with crutches. Hgb was 10.7 g. I felt he had completed all acute care goals and was ready for discharge home. Home Meds and New Rx's Prescriptions: New ibuprofen 800 mg tablet 800 mg PO QID PRN (Reason: pain) Qty: 60 RF: 0 Continued naltrexone 50 mg Tablet 4.5 mg PO DAILY RF: 0 lisinopril 20 mg Tablet 20 mg PO DAILY RF: 0 acetaminophen [Tylenol Arthritis Pain] 650 mg Tablet Extended Release 650 mg PO BID RF: 0 simvastatin [Zocor] 20 mg Tablet 20 mg PO QPM RF: 0 Humalog U-100 Insulin 100 unit/mL Solution 70 unit SUBCUT DAILY RF: 0 duloxetine [Cymbalta] 30 mg Capsule,Delayed Release(Dr/Ec) 30 mg PO BID RF: 0 Lyrica 100 mg Capsule 100 mg PO BID RF: 0 Trulicity 1.5 mg/0.5 mL Pen Injector 1.5 mg SUBCUT QWEEK RF: 0 Discharge Instructions Additional Instructions: Elevate R leg when sitting. Touchdown weightbearing on R foot. Keep splint and dressings dry and intact until return. Return to 's office in 2 weeks. Take tylenol and ibuprofen for pain as needed. Resume taking naltrexone at home. Stand Alone Forms: Nursing Discharge Form Referrals: Robert Kirk MD [ [facility] STAFF PHYSICIAN] - (f/u in 2 weeks) Activity:: Activity as Tolerated Equipment/Supplies:: Crutches Diet:: As Tolerated Discharge Orders Discharge Orders: Discharge Order (Routine); Ordered 08/29/18 Ordered By: Robert Kirk DS: Data Vitals/I&O Vitals and I&O: Vital Signs Temperature 36.8 C 08/29/18 07:50 Temperature Source Tympanic 08/29/18 07:50 Pulse 94 H 08/29/18 07:50 Pulse Rhythm Regular 08/29/18 05:23 Respiratory Rate 20 08/29/18 07:50 Respiratory Effort 08/29/18 05:23 Respiratory Depth Normal 08/29/18 05:23 Respiratory Pattern Normal 08/29/18 05:23 Blood Pressure 134/77 08/29/18 07:50 Blood Pressure Mean 97 08/27/18 17:16 Blood Pressure Position Supine 08/27/18 15:51 Pulse Oximetry 97 08/29/18 07:50 Respiratory End-tidal CO2 31 08/28/18 15:55 Oxygen Delivery Method Room Air 08/29/18 07:50 Oxygen Flow Rate 0 08/29/18 07:50 Pain Level 6 08/29/18 09:12 Intake & Output 08/28/18 08/28/18 08/29/18 11:59 23:59 11:59 Intake Total 2353.416 / 2353.416 60 / 60 Output Total 375 / 800 425 / 800 Balance -375 / 5364.301 4620.416 / 1553.416 60 / 60 Intake: IV 1873.416 / 1873.416 0 / 0 Oral 480 / 480 60 / 60 Output: Urine 375 / 775 400 / 775 Estimated Blood Loss Other: Urine Color Straw Yellow Urine Appearance Clear Clear Clear Comment Large volume - not measured. Emesis Description None Voiding Methods Urinal Urinal Labs on day of discharge: Labs from last 24 hours 08/29/18 06:50 WBC 19.25 H D RBC 3.61 L Hgb 10.7 L D Hct 32.4 L MCV 89.8 MCH 29.6 MCHC 33.0 RDW 13.2 Plt Count 282 MPV 9.4 PFSH Medical History Diabetic peripheral neuropathy (Chronic) Diabetes type I (Chronic) Depression (Chronic) Surgical History History of laparoscopic appendectomy (Acute) History of reconstruction of anterior cruciate ligament tear (Acute) History of repair of right rotator cuff (Acute) Social History Smoking/Tobacco Use Status: Never
--- NOTE | 2018-08-29 10:12 | DSE_ITS ---
Date of service: 08/29/18 Time of Service: 10:05 DS: Diagnosis Discharge Diagnosis (1) Fracture tibia/fibula: Status: Acute Discharge Plan Disposition Patient Disposition: HOME Condition: Good Discharge Details Chief Complaint: Orthopedic Clinical Impression: Fracture tibia/fibula Reason For Visit: CLOSED FX R TIB/FIB Admit Date/Time: 08/27/18 17:17 Admit Provider: Robert Kirk Attending Provider: Robert Kirk Primary Care Provider: DANIEL MEDEROS [facility] Hospital Course: Patient was splinted and admitted for planned IM nailing of fx R tib/fib. Pre- op labs were unremarkable. He was taken to the OR on 08/28/18 where he underwent a closed IM nailing of his Fx R tib/fib w/o complications. On 08/29/18, he was afebrile, Vss and eating well. He was not taking any opiods for pain. He was independant with transfers and ambulation with crutches. Hgb was 10.7 g. I felt he had completed all acute care goals and was ready for discharge home. Home Meds and New Rx's Prescriptions: New ibuprofen 800 mg tablet 800 mg PO QID PRN (Reason: pain) Qty: 60 RF: 0 Continued naltrexone 50 mg Tablet 4.5 mg PO DAILY RF: 0 lisinopril 20 mg Tablet 20 mg PO DAILY RF: 0 acetaminophen [Tylenol Arthritis Pain] 650 mg Tablet Extended Release 650 mg PO BID RF: 0 simvastatin [Zocor] 20 mg Tablet 20 mg PO QPM RF: 0 Humalog U-100 Insulin 100 unit/mL Solution 70 unit SUBCUT DAILY RF: 0 duloxetine [Cymbalta] 30 mg Capsule,Delayed Release(Dr/Ec) 30 mg PO BID RF: 0 Lyrica 100 mg Capsule 100 mg PO BID RF: 0 Trulicity 1.5 mg/0.5 mL Pen Injector 1.5 mg SUBCUT QWEEK RF: 0 Discharge Instructions Additional Instructions: Elevate R leg when sitting. Touchdown weightbearing on R foot. Keep splint and dressings dry and intact until return. Return to 's office in 2 weeks. Take tylenol and ibuprofen for pain as needed. Resume taking naltrexone at home. Stand Alone Forms: Nursing Discharge Form Referrals: Robert Kirk MD [ [facility]YSICIAN] - (f/u in 2 weeks) Activity:: Activity as Tolerated Equipment/Supplies:: Crutches Diet:: As Tolerated Discharge Orders Discharge Orders: Discharge Order (Routine); Ordered 08/29/18 Ordered By: Robert Kirk DS: Data Vitals/I&O Vitals and I&O: Vital Signs Temperature 36.8 C 08/29/18 07:50 Temperature Source Tympanic 08/29/18 07:50 Pulse 94 H 08/29/18 07:50 Pulse Rhythm Regular 08/29/18 05:23 Respiratory Rate 20 08/29/18 07:50 Respiratory Effort 08/29/18 05:23 Respiratory Depth Normal 08/29/18 05:23 Respiratory Pattern Normal 08/29/18 05:23 Blood Pressure 134/77 08/29/18 07:50 Blood Pressure Mean 97 08/27/18 17:16 Blood Pressure Position Supine 08/27/18 15:51 Pulse Oximetry 97 08/29/18 07:50 Respiratory End-tidal CO2 31 08/28/18 15:55 Oxygen Delivery Method Room Air 08/29/18 07:50 Oxygen Flow Rate 0 08/29/18 07:50 Pain Level 6 08/29/18 09:12 Intake & Output 08/28/18 08/28/18 08/29/18 11:59 23:59 11:59 Intake Total 2353.416 / 2353.416 60 / 60 Output Total 375 / 800 425 / 800 Balance -375 / 2821.054 3410.416 / 1553.416 60 / 60 Intake: IV 1873.416 / 1873.416 0 / 0 Oral 480 / 480 60 / 60 Output: Urine 375 / 775 400 / 775 Estimated Blood Loss Other: Urine Color Straw Yellow Urine Appearance Clear Clear Clear Comment Large volume - not measured. Emesis Description None Voiding Methods Urinal Urinal Labs on day of discharge: Labs from last 24 hours 08/29/18 06:50 WBC 19.25 H D RBC 3.61 L Hgb 10.7 L D Hct 32.4 L MCV 89.8 MCH 29.6 MCHC 33.0 RDW 13.2 Plt Count 282 MPV 9.4 PFSH Medical History Diabetic peripheral neuropathy (Chronic) Diabetes type I (Chronic) Depression (Chronic) Surgical History History of laparoscopic appendectomy (Acute) History of reconstruction of anterior cruciate ligament tear (Acute) History of repair of right rotator cuff (Acute) Social History Smoking/Tobacco Use Status: Never
[2018-08-29] MEDS: Normal Saline Flush 10 ML SYR IVP (10:15)
[2018-08-29 11:43] VITALS: BP 157/78; PULSE 97; RESP 18; TEMP 36.5; O2SAT 94
--- NOTE | 2018-08-29 16:09 | PDOC.CMDIS ---
LACE Index Scoring Tool - Questions: Length of Stay (in days): 3 Acuity (Admit via E.D.?): Yes Comorbidities: Diabetes w/o Complication E.D. Visits: 1 - Answers: Total Score: 8 Risk of Readmission: Low Risk Care Management Discharge Reason for Hospitalization: Closed FX R TIB/FIB Discharge Plan: Robert reported he was not interested in completing AD at this time. He shared that he would be returning home without services and would re-evaluate recovery needs during his follow up appointment. Robert will discharge home with no additional services anticipated at this time. Robert will follow up with surgical services, his PCP and plan of care as prescribed including activity restrictions and medication recommendations. He will transport via private vehicle with his . Patient/Family Education Needs: Review of discharge instructions, discuss Ask Me Three.
--- NOTE | 2018-08-29 16:13 | CMDISCH_ITS ---
LACE Index Scoring Tool - Questions: Length of Stay (in days): 3 Acuity (Admit via E.D.?): Yes Comorbidities: Diabetes w/o Complication E.D. Visits: 1 - Answers: Total Score: 8 Risk of Readmission: Low Risk Care Management Discharge Reason for Hospitalization: Closed FX R TIB/FIB Discharge Plan: Robert reported he was not interested in completing AD at this time. He shared that he would be returning home without services and would re- evaluate recovery needs during his follow up appointment. Robert will discharge h ome with no additional services anticipated at this time. Robert will follow up with surgical services, his PCP and plan of care as prescribed including activity restrictions and medication recommendations. He will transport via private vehicle with his . Patient/Family Education Needs: Review of discharge instructions, discuss Ask Me Three.
== END 2018-08-29 17:05 | disposition home or self-care (01) | DRG 494 ==
LOC: ER 17:06 → MS 18:45
PROVIDERS: Admitting Provider Orthopaedic Surgery; Emergency Provider Physician Assistant; PCP Family Medicine; Visit Provider Orthopaedic Surgery
PROC: 0QSG36Z Reposition Right Tibia with Intramedullary Internal Fixation Device, Percutaneous Approach (ICD-10-PCS; CPT 27759; principal; 2018-08-28 13:00)
DX: S82.241A Displaced spiral fracture of shaft of right tibia, initial encounter for closed fracture (principal); S82.431A Displaced oblique fracture of shaft of right fibula, initial encounter for closed fracture; S82.54XA Nondisplaced fracture of medial malleolus of right tibia, initial encounter for closed fracture; V00.328A Other snow-ski accident, initial encounter; Y93.23 Activity, snow (alpine) (downhill) skiing, snowboarding, sledding, tobogganing and snow tubing; E10.42 Type 1 diabetes mellitus with diabetic polyneuropathy
CPT/HCPCS: 27759; 29581; 36415; 80048; 85027; 96374; 97161; 99285; NC; 73590; 73700; 99284; J0690; J1100; J1885; J2405

== ENCOUNTER 2018-09-11 09:21 | Outpatient (CLI) | payer BC, SELFPAY ==
--- NOTE | 2018-09-11 09:18 | DI.RAD_ITS ---
SYMPTOMS/DIAGNOSIS: F/U INTRAMEDULLARY NAILING RIGHT LEG: Two views were obtained and show previously described tibiofibular fracture with intramedullary ministerio in place in the tibia. Alignment appears essentially unchanged in comparison with the previous examination of August 28.
== END 2018-09-11 09:41 ==
PROVIDERS: PCP Family Medicine; Visit Provider Orthopaedic Surgery
DX: S82.241D Displaced spiral fracture of shaft of right tibia, subsequent encounter for closed fracture with routine healing (principal); S82.431D Displaced oblique fracture of shaft of right fibula, subsequent encounter for closed fracture with routine healing
CPT/HCPCS: 73590

== ENCOUNTER 2018-10-09 09:52 | Outpatient (CLI) | payer BC, SELFPAY ==
--- NOTE | 2018-10-09 09:48 | DI.RAD_ITS ---
SYMPTOMS/DIAGNOSIS: F/U FRACTURE RIGHT TIB/FIB: Comparison 09/11/18. There is again seen an intramedullary ministerio transfixing fracture of the right tibia. No change in alignment of the orthopedic hardware or fracture components are seen. The distal right fibular fracture appears stable. Vascular calcifications are seen in the soft tissues.
== END 2018-10-09 10:12 ==
PROVIDERS: PCP Family Medicine; Visit Provider Orthopaedic Surgery
DX: S82.241D Displaced spiral fracture of shaft of right tibia, subsequent encounter for closed fracture with routine healing (principal); S82.431D Displaced oblique fracture of shaft of right fibula, subsequent encounter for closed fracture with routine healing
CPT/HCPCS: 73590

== ENCOUNTER 2018-11-06 09:46 | Outpatient (CLI) | payer BC, SELFPAY ==
--- NOTE | 2018-11-06 09:41 | DI.RAD_ITS ---
SYMPTOMS/DIAGNOSIS: F/U IM NAILING RIGHT LEG: The patient is status post ministerio and screw fixation of a fracture of the distal tibial shaft and distal fibula. The fractures remain in excellent alignment with no interval change when compared with the previous examination of 10/09/18.
== END 2018-11-06 10:06 ==
PROVIDERS: PCP Family Medicine; Visit Provider Orthopaedic Surgery
DX: S82.241D Displaced spiral fracture of shaft of right tibia, subsequent encounter for closed fracture with routine healing (principal); S82.431D Displaced oblique fracture of shaft of right fibula, subsequent encounter for closed fracture with routine healing
CPT/HCPCS: 73590

== ENCOUNTER 2018-12-04 09:04 | Outpatient (CLI) | payer BC, SELFPAY ==
--- NOTE | 2018-12-04 09:00 | DI.RAD_ITS ---
SYMPTOM/DIAGNOSIS: F/U FX RIGHT LEG: Two views were obtained. The previously described intramedullary ministerio again noted in place. Healing tibiofibular fracture again noted. No gross interval change in alignment in comparison with examination of 11/06.
== END 2018-12-04 09:24 ==
PROVIDERS: PCP Family Medicine; Visit Provider Physician Assistant
DX: S82.241D Displaced spiral fracture of shaft of right tibia, subsequent encounter for closed fracture with routine healing (principal); S82.431D Displaced oblique fracture of shaft of right fibula, subsequent encounter for closed fracture with routine healing
CPT/HCPCS: 73590

== ENCOUNTER 2018-12-31 09:20 | Outpatient (CLI) | payer BC, SELFPAY ==
--- NOTE | 2018-12-31 09:00 | DI.RAD_ITS ---
SYMPTOM/DIAGNOSIS: F/U FRACTURES RIGHT LEG: There has been no change in the position of the tibial fracture. Intramedullary ministerio in place. Also there has been no change in the alignment of a distal fibular fracture.
== END 2018-12-31 09:40 ==
PROVIDERS: PCP Family Medicine; Visit Provider Orthopaedic Surgery
DX: S82.241D Displaced spiral fracture of shaft of right tibia, subsequent encounter for closed fracture with routine healing (principal); S82.431D Displaced oblique fracture of shaft of right fibula, subsequent encounter for closed fracture with routine healing
CPT/HCPCS: 73590

== ENCOUNTER 2019-02-25 10:49 | Outpatient (CLI) | payer BC, SELFPAY ==
--- NOTE | 2019-02-25 09:19 | DI.RAD_ITS ---
SYMPTOM/DIAGNOSIS: F/U RIGHT LEG: Two views. Comparison 12/31/18 There is again seen an intramedullary ministerio transfixing the fracture of the distal right tibia. The orthopaedic hardware appears stable. There is again seen a broken distal tibial screw. The alignment of the tibial fracture is stable. No new fractures identified. There is also a healing distal right fibular fracture again noted. It is unchanged in alignment. Extensive vascular calcifications are appreciated.
== END 2019-02-25 11:09 ==
PROVIDERS: PCP Family Medicine; Visit Provider Orthopaedic Surgery
DX: S82.241D Displaced spiral fracture of shaft of right tibia, subsequent encounter for closed fracture with routine healing; S82.431D Displaced oblique fracture of shaft of right fibula, subsequent encounter for closed fracture with routine healing
CPT/HCPCS: 73590

== ENCOUNTER 2020-01-22 06:35 | Day surgery (SDC) | payer OTHER, SELFPAY ==
[2020-01-22 06:35] VITALS: BP 144/82; PULSE 85; RESP 18; TEMP 36.5; O2SAT 97
[2020-01-22] MEDS: Povidone-Iodine Ophth 30 ML BTL (07:27)
[2020-01-22] MEDS: Tetracaine 0.5% 4 ML BTL OS (07:27)
[2020-01-22] MEDS: Balanced Salt Soln.-PLUS 500 ML BAG (07:33)
[2020-01-22] MEDS: Lidocaine 1% Pres-Free 5 ML VIAL (07:33)
[2020-01-22] MEDS: Moxifloxacin-PF 1 MG/ML VIAL (07:36)
--- NOTE | 2020-01-22 08:27 | W.PM.DSUDISC ---
Discharge Plan Disposition Patient Disposition: HOME Condition: Good Discharge Details Reason For Visit: CATARACT OS Attending Provider: Perry Gonzalez Primary Care Provider: DANIEL MEDEROS Home Meds and New Rx's Prescriptions: No Action naltrexone 50 mg Tablet 4.5 mg PO DAILY RF: 0 lisinopril 20 mg Tablet 40 mg PO DAILY RF: 0 acetaminophen [Tylenol Arthritis Pain] 650 mg Tablet Extended Release 650 mg PO BID RF: 0 simvastatin [Zocor] 20 mg Tablet 20 mg PO QPM RF: 0 insulin lispro [Humalog U-100 Insulin] 100 unit/mL Solution 84 unit SUBCUT DAILY RF: 0 duloxetine [Cymbalta] 30 mg Capsule,Delayed Release(Dr/Ec) 30 mg PO BID RF: 0 pregabalin [Lyrica] 100 mg Capsule 100 mg PO BID RF: 0 Trulicity 1.5 mg/0.5 mL Pen Injector 1.5 mg SUBCUT QWEEK RF: 0 ibuprofen 800 mg tablet 800 mg PO QID PRN (Reason: pain) Qty: 60 RF: 0 metformin 1,000 mg tablet 1,000 mg PO BID RF: 0 omeprazole 20 mg capsule,delayed release(DR/EC) 20 mg PO PRN PRNRF: 0 Discharge Instructions Stand Alone Forms: Post-op Topical Cataract, Brady Carrera (DSU) Discharge Orders Discharge Orders: Discharge Order (Routine); Ordered 01/22/20 Ordered By: Perry Gonzalez DS: Diagnosis Discharge Diagnosis (1) Nuclear sclerotic cataract of left eye: Status: Resolved (2) History of vitrectomy: Status: Chronic (3) Cortical cataract of left eye: Status: Resolved
--- NOTE | 2020-01-22 08:29 | ROE_ITS ---
Date of service: 01/22/20 Time of Service: 08:30 Operative Note Operative Note DATE OF PROCEDURE: 01/22/20 PRE-OP DIAGNOSIS: Nuclear/cortical cataract, left eye POST-OP DIAGNOSIS: same PROCEDURE: Cataract extraction by phacoemulsification with intraocular lens implantation, left eye, with pupillary expansion device SURGEON: Perry Gonzalez ANESTHESIA: MAC and local (sub-tenon's anesthetic infiltration) ESTIMATED BLOOD LOSS: 0 PATHOLOGY: none sent COMPLICATIONS: None Patient was transported to: same day Patient's condition: stable Implants: Had[employer] Hadley / [employer] Opt[employer] Tecnis [id number] Indications: Progressive decreased vision, left eye Procedure Description: CATARACT SURGERY OPERATIVE REPORT PREOPERATIVE DIAGNOSIS: 1. Nuclear/cortical cataract, left eye 2. Poorly dilating pupil, left eye 3. Status post pars plana vitrectomy with membrane peeling, left eye 4. Myopia POSTOPERATIVE DIAGNOSIS: Same OPERATION: 1. Cataract extraction using phacoemulsification with posterior chamber intraocular lens implant, left eye. 2. Pupillary dilation and iris stabilization using Malyugin Ring IOL; IOL Web Application Dev Specialist/Model: Hadley & Hadley / KACEY Tecnis ZCB00 IOL Power: + 17.0 diopters IOL Serial Number: [id number] Optic Diameter: 6.0 mm Haptic/Overall Diameter: 13.00 mm PHACO INFO: Dick [employer]ion Vision System with OZil and Active Fluidics Cumulative Dispersed Energy (CDE): 10.7 seconds SURGEON: Perry Gonzalez MD, LUIGI ANESTHESIA: Monitored Anesthesia Care (MAC), with local sub-tenon's anesthetic infiltration COMPLICATIONS: None SPECIMENS: None INDICATIONS FOR PROCEDURE: The patient is a 59-year-old gentleman with history of diabetes with diabetic retinopathy. He has previously undergone pars plano vitrectomy with membrane peeling and panretinal photocoagulation in the left eye in October 2019. He has developed a significant nuclear and cortical cataract in the left eye. He also has a history of high myopia. The option of cataract surgery was offered to the patient and he wished to proceed. PROCEDURE: The correct surgical eye was identified and marked as the left eye and the pupil was dilated in the preoperative area using mydriatics, cycloplegics, and NSAIDS (except in aspirin allergic patients). The dilated pupil size was 4.5 mm. Oral sedation was administered in the form of an Imprimis MKO Melt (midazolam 3mg/ketamine 25mg/ondansetron 2mg). The patient was brought to the operating room where cardiopulmonary monitoring was instituted and surgical time-out was performed, confirming the correct operative eye and IOL power. Topical anesthesia was administered and ophthalmic povidone-iodine 5% was instilled into the conjunctival fornices. Lidocaine gel was applied to the cornea and the samantha-ocular area was prepped with Betadine 10% solution and draped in the usual sterile fashion for intraocular surgery, including an aperture drape. A Tegaderm transparent film dressing was cut in half and used to cover the lashes and lid margins. Care was taken to sequester the lashes and lid margins under the Tegaderm dressing. A lid speculum was placed between the lids of the operative eye and the Isabela-Alexandre operating microscope was maneuvered into position. Eda scissors were then used to make a conjunctival buttonhole approximately 6mm posterior to the limbus in the inferonasal quadrant. Blunt dissection was carried out to expose bare sclera, and a blunt-tipped sub-tenon?s anesthesia cannula was introduced and passed posteriorly along the globe where non- preserved plain lidocaine was injected into posterior sub-Tenon?s space. A sideport knife was used to make a paracentesis port superiorly/superiortemporally. Intraocular phenylephrine/lidocaine was injected into the anterior chamber. The anterior chamber was then filled with Healon Pro. A 2.4mm keratome knife was used to create a half-thickness groove at the limbus and then to construct a three-plane near-clear corneal tunnel extending 2.0mm into clear cornea at the temporal position. A 7.0 mm Malyugin Ring was then inserted into the pupillary space and engaged with the Kuglen hook. A flap was raised on the anterior capsule and capsulorhexis forceps were used to initiate a continuous curvilinear capsulorrhexis at the 2 o'clock position and propagated clockwise. The capsule was noted to be extremely thin. At the 12 o'clock position, the capsulorrhexis began to run peripherally. Additional viscoelastic was introduced into the eye and the Little maneuver was used in attempt to bring the capsulorrhexis back centrally, however it continued to propagate peripherally. Additional viscoelastic was injected into the eye and a second paracentesis port was made at the 5 o'clock position. A cystotome was introduced through the inferior paracentesis and used to continue the capsulorhe xis which was completed at the 3:30 o'clock position. Balanced salt solution was then used to perform cortical cleaving hydrodissection and nuclear hydrodelineation until the lens could be freely r otated within the capsular bag. I did not attempt to prolapse the nucleus out of the bag due to the irregular capsulorhexis. The lens nucleus was then disassembled and removed within the capsular bag and iris plane using phacoemulsification. Nucleus splitter used to aid in cracking the nucleus into quadrants. Residual cortical material was removed using the 45-degree angled silicone I/A tip with 0.3mm port. The posterior capsule was carefully polished to remove as much residual lens epithelial cells as safely possible. The capsular bag was then inflated and the anterior chamber deepened with viscoelastic. The lens implant described above was inserted into the capsular bag using the KACEY [place] Injector. A Kuglen hook was used to dial the IOL into position. The Malyugin Ring was removed in the reverse order of its insertion. Residual viscoelastic was then removed first from posterior to the IOL, then from the anterior chamber using the I/A handpiece. The lens implant was noted to center nicely within the capsular bag, with the haptics oriented superiorly and inferiorly, 90 degrees away from the peripheral capsulorhexis at the 3 o'clock position.. The incisions were stromally hydrated, and the anterior chamber was reformed using BSS. Then 0.5cc of moxifloxacin 1.0mg/ml were injected into the capsular bag and anterior chamber. A Descemet's membrane detachment was noted at the main phaco incision site, but was repositioned by inflating the anterior chamber. The incisions were checked with a Weck spear and found to be secure. Several drops of ophthalmic povidone-iodine 5% were then applied to the eye followed by two drops of Imprimis combination prednisolone/moxifloxacin/nepafenac solution. The drapes were removed and a clear plastic protective eye shield was placed over the eye. The patient was then returned to [facility] Surgery in stable condition.
[2020-01-22 08:45] VITALS: BP 138/80; PULSE 88; RESP 16; TEMP 36; O2SAT 98
== END 2020-01-22 09:06 | disposition home or self-care (01) ==
PROVIDERS: PCP Family Medicine; Visit Provider Ophthalmology
PROC: (CPT 66982; principal; 2020-01-22 07:30)
DX: H25.12 Age-related nuclear cataract, left eye (principal); H25.012 Cortical age-related cataract, left eye; H57.09 Other anomalies of pupillary function; Z98.890 Other specified postprocedural states; H52.13 Myopia, bilateral; E11.319 Type 2 diabetes mellitus with unspecified diabetic retinopathy without macular edema
CPT/HCPCS: 66982; V2632; J3490

== ENCOUNTER 2020-04-07 18:51 | Outpatient (REF) | payer OTHER, SELFPAY ==
[2020-04-07 15:45] LABS: Abs Immature Grans 0.07 10^3/uL (0.0-0.06); Absolute Basophil Count 0.05 10^3/uL (0.0-0.2); Absolute Eosinophil Count 0.35 10^3/uL (0.0-0.7); Absolute Lymphocyte Count 2.01 10^3/uL (1.2-3.4); Absolute Monocyte Count 1.08 10^3/uL (0.1-0.8); Basophils % 0.4; Eosinophils % 2.6; HCT 35.8 % (40.0-50.0); HGB 11.6 g/dL (13.5-17.5); Immature Grans % 0.5; Lymphocytes % 15.1; MCH 29.2 pg (27.0-33.0); MCHC 32.4 % (32.0-36.0); MCV 90.2 fL (80-95); MPV 9.8 fL (8.0-11.0); Monocytes % 8.1; Neutrophils % 73.3; Nucleated RBC 0 %; Platelet Count 314 10^3/uL (130-400); RBC 3.97 10^6/uL (4.36-5.78); RDW 13.3 % (11.8-14.1); RDW-SD 44.4 fL; WBC 13.28 10^3/uL (4.4-10.8)
[2020-04-07 15:46] LABS: Absolute Neutrophil Count 9.73 10^3/uL (1.2-6.7)
[2020-04-07 16:24] LABS: ESR 38 mm/hr (1-20)
[2020-04-07 16:45] LABS: Anion Gap 8.5 mmol/L (3-11); BUN 37 mg/dL (7-18); C-Reactive Protein 0.13 mg/dL (0.0-0.3); CO2 24.5 mmol/L (21.0-32.0); CREATININE 1.18 mg/dL (0.70-1.30); Calcium 8.3 mg/dL (8.5-10.1); Chloride 101 mmol/L (98-107); Glucose 217 mg/dL (74-106); Potassium 5.4 mmol/L (3.5-5.1); Sodium 134 mmol/L (136-145)
== END 2020-04-07 19:11 ==
LOC: LBN 18:51
PROVIDERS: PCP Family Medicine; Visit Provider Family Medicine
DX: D64.9 Anemia, unspecified (principal); M86.171 Other acute osteomyelitis, right ankle and foot
CPT/HCPCS: 80048; 85652; 85025; 86140

== ENCOUNTER 2020-04-21 16:53 | Outpatient (REF) | payer OTHER, SELFPAY ==
[2020-04-21 19:27] LABS: BUN 34 mg/dL (7-18); CREATININE 0.99 mg/dL (0.70-1.30); Calcium 9.3 mg/dL (8.5-10.1); Chloride 103 mmol/L (98-107); Glucose 167 mg/dL (74-106); Potassium 5.5 mmol/L (3.5-5.1); Sodium 139 mmol/L (136-145)
[2020-04-21 19:34] LABS: HCT 37.7 % (40.0-50.0); HGB 11.9 g/dL (13.5-17.5); MCH 28.1 pg (27.0-33.0); MCHC 31.6 % (32.0-36.0); MCV 89.1 fL (80-95); MPV 9.5 fL (8.0-11.0); Platelet Count 347 10^3/uL (130-400); RBC 4.23 10^6/uL (4.36-5.78); RDW 13.7 % (11.8-14.1); RDW-SD 44.5 fL; WBC 9.53 10^3/uL (4.4-10.8)
[2020-04-21 21:08] LABS: Hemoglobin A1C 8.6 % (<5.7)
== END 2020-04-21 17:13 ==
LOC: LBN 16:53
PROVIDERS: PCP Family Medicine; Visit Provider Family Medicine
DX: E10.69 Type 1 diabetes mellitus with other specified complication (principal); M86.09 Acute hematogenous osteomyelitis, multiple sites
CPT/HCPCS: 80048; 85027; 83036; 86140

== ENCOUNTER 2020-06-27 12:00 | Outpatient (REF) | payer OTHER, SELFPAY ==
[2020-06-27 12:26] LABS: Abs Immature Grans 0.02 10^3/uL (0.0-0.06); Absolute Basophil Count 0.05 10^3/uL (0.0-0.2); Absolute Eosinophil Count 0.28 10^3/uL (0.0-0.7); Absolute Monocyte Count 0.91 10^3/uL (0.1-0.8); Absolute Neutrophil Count 5.76 10^3/uL (1.2-6.7); Basophils % 0.6; Eosinophils % 3.2; HCT 34.1 % (40.0-50.0); HGB 10.9 g/dL (13.5-17.5); Immature Grans % 0.2; Lymphocytes % 18.6; MCH 28.1 pg (27.0-33.0); MCV 87.9 fL (80-95); MPV 9.7 fL (8.0-11.0); Monocytes % 10.6; Neutrophils % 66.8; Nucleated RBC 0 %; Platelet Count 242 10^3/uL (130-400); RBC 3.88 10^6/uL (4.36-5.78); RDW 14.7 % (11.8-14.1); RDW-SD 47.4 fL; WBC 8.62 10^3/uL (4.4-10.8)
[2020-06-27 12:49] LABS: ALT 101 U/L (16-63); AST 59 U/L (15-37); Albumin 3.5 g/dL (3.4-5.0); Alkaline Phosphatase 150 U/L (46-116); Anion Gap 8.5 mmol/L (3-11); BUN 34 mg/dL (7-18); Bilirubin, Total 0.2 mg/dL (0.2-1.0); C-Reactive Protein 0.46 mg/dL (0.0-0.3); CO2 24.5 mmol/L (21.0-32.0); CREATININE 1.44 mg/dL (0.70-1.30); Calcium 8.6 mg/dL (8.5-10.1); Chloride 101 mmol/L (98-107); Creatine Kinase 217 U/L (39-308); Estimated GFR 50.21 (mL/min/1.73m2); Glucose 314 mg/dL (74-106); Potassium 5.7 mmol/L (3.5-5.1); Sodium 134 mmol/L (136-145); Total Protein 7.2 g/dL (6.4-8.2)
== END 2020-06-27 12:20 ==
LOC: LBN 12:00
PROVIDERS: PCP Family Medicine; Visit Provider Internal Medicine Infectious Disease
DX: M86.671 Other chronic osteomyelitis, right ankle and foot (principal); A49.02 Methicillin resistant Staphylococcus aureus infection, unspecified site
CPT/HCPCS: 80053; 82550; 85025; 86140

== ENCOUNTER 2020-07-04 10:04 | Outpatient (REF) | payer OTHER, SELFPAY ==
[2020-07-04 11:42] LABS: Abs Immature Grans 0.04 10^3/uL (0.0-0.06); Absolute Basophil Count 0.03 10^3/uL (0.0-0.2); Absolute Eosinophil Count 0.53 10^3/uL (0.0-0.7); Absolute Lymphocyte Count 1.48 10^3/uL (1.2-3.4); Absolute Monocyte Count 1.08 10^3/uL (0.1-0.8); Absolute Neutrophil Count 6.29 10^3/uL (1.2-6.7); Basophils % 0.3; Eosinophils % 5.6; HCT 34.3 % (40.0-50.0); HGB 10.9 g/dL (13.5-17.5); Immature Grans % 0.4; Lymphocytes % 15.7; MCH 28.2 pg (27.0-33.0); MCHC 31.8 % (32.0-36.0); MCV 88.9 fL (80-95); MPV 9.6 fL (8.0-11.0); Monocytes % 11.4; Neutrophils % 66.6; Nucleated RBC 0 %; Platelet Count 244 10^3/uL (130-400); RBC 3.86 10^6/uL (4.36-5.78); RDW 14.7 % (11.8-14.1); RDW-SD 48.1 fL; WBC 9.45 10^3/uL (4.4-10.8)
[2020-07-04 12:28] LABS: ALT 65 U/L (16-63); AST 35 U/L (15-37); Albumin 3.6 g/dL (3.4-5.0); Alkaline Phosphatase 143 U/L (46-116); Anion Gap 5.1 mmol/L (3-11); BUN 37 mg/dL (7-18); Bilirubin, Total 0.2 mg/dL (0.2-1.0); C-Reactive Protein 1.28 mg/dL (0.0-0.3); CO2 27.9 mmol/L (21.0-32.0); CREATININE 1.12 mg/dL (0.70-1.30); Calcium 9.1 mg/dL (8.5-10.1); Chloride 103 mmol/L (98-107); Creatine Kinase 250 U/L (39-308); Glucose 103 mg/dL (74-106); Potassium 5.4 mmol/L (3.5-5.1); Sodium 136 mmol/L (136-145); Total Protein 7.4 g/dL (6.4-8.2)
== END 2020-07-04 10:24 ==
LOC: LBN 10:04
PROVIDERS: PCP Family Medicine; Visit Provider Internal Medicine Infectious Disease
DX: M86.671 Other chronic osteomyelitis, right ankle and foot (principal); A49.02 Methicillin resistant Staphylococcus aureus infection, unspecified site
CPT/HCPCS: 80053; 82550; 85025; 86140

== ENCOUNTER 2020-08-26 07:29 | Day surgery (SDC) | payer OTHER, SELFPAY ==
[2020-08-26 07:54] VITALS: BP 130/76; PULSE 89; RESP 16; TEMP 36.2; O2SAT 99
[2020-08-26] MEDS: Tropicam./Phenyleph. (1/2.5%) 5 ML BTL OD ×3 (08:02→08:10)
[2020-08-26] MEDS: Tetracaine 0.5% 4 ML BTL OD (09:35)
[2020-08-26] MEDS: Lidocaine 2% Jelly 6 ML SYR (09:35)
[2020-08-26] MEDS: Povidone-Iodine Ophth 30 ML BTL (09:35)
[2020-08-26] MEDS: Lidocaine 1% Pres-Free 5 ML VIAL (09:39)
[2020-08-26] MEDS: Duovisc Viscoelastic System EACH 1 EACH (09:39)
[2020-08-26] MEDS: Balanced Salt Soln.-PLUS 500 ML BAG (09:39)
--- NOTE | 2020-08-26 10:08 | W.PM.DSUDISC ---
Discharge Plan Disposition Patient Disposition: HOME Condition: Good Discharge Details Attending Provider: Perry Gonzalez Primary Care Provider: DANIEL MEDEROS Home Meds and New Rx's Prescriptions: No Action naltrexone 50 mg Tablet 4.5 mg PO DAILY RF: 0 lisinopril 20 mg Tablet 40 mg PO DAILY RF: 0 acetaminophen [Tylenol Arthritis Pain] 650 mg Tablet Extended Release 650 mg PO BID RF: 0 simvastatin [Zocor] 20 mg Tablet 20 mg PO QPM RF: 0 insulin lispro [Humalog U-100 Insulin] 100 unit/mL Solution 84 unit SUBCUT DAILY RF: 0 duloxetine [Cymbalta] 30 mg Capsule,Delayed Release(Dr/Ec) 30 mg PO BID RF: 0 pregabalin [Lyrica] 100 mg Capsule 100 mg PO BID RF: 0 Trulicity 1.5 mg/0.5 mL Pen Injector 1.5 mg SUBCUT QWEEK RF: 0 ibuprofen 800 mg tablet 800 mg PO QID PRN (Reason: pain) Qty: 60 RF: 0 metformin 1,000 mg tablet 1,000 mg PO BID RF: 0 omeprazole 20 mg capsule,delayed release(DR/EC) 20 mg PO PRN PRNRF: 0 Discharge Instructions Stand Alone Forms: Post-op Topical Cataract, Brady Carrera (DSU) Discharge Orders Discharge Orders: Discharge Order (Routine); Ordered 08/26/20 Ordered By: Perry Gonzalez DS: Diagnosis Discharge Diagnosis (1) Cortical cataract of right eye: Status: Resolved (2) Nuclear sclerotic cataract of right eye: Status: Resolved
--- NOTE | 2020-08-26 10:09 | ROE_ITS ---
Date of service: 08/26/20 Time of Service: 10:09 Operative Note Operative Note DATE OF PROCEDURE: 08/26/20 PRE-OP DIAGNOSIS: Nuclear/cortical cataract, right eye POST-OP DIAGNOSIS: same PROCEDURE: Cataract extraction using phacoemulsification with intraocular lens implant, right eye SURGEON: Perry Gonzalez ANESTHESIA: MAC and local (sub-tenon's anesthetic infiltration) ESTIMATED BLOOD LOSS: 0 PATHOLOGY: none sent COMPLICATIONS: None Patient was transported to: same day Patient's condition: stable Implants: Had[employer] Hadley Vision / [employer] Optics Tecnis ZCB00 intraocular lens Indications: Progressive decreased vision due to cataract, right eye Procedure Description: CATARACT SURGERY OPERATIVE REPORT PREOPERATIVE DIAGNOSIS: Nuclear/cortical cataract, right eye POSTOPERATIVE DIAGNOSIS: Same OPERATION: Cataract extraction using phacoemulsification with posterior chamber intraocular lens implant, right eye. IOL: IOL Loan Examiner/Model: [employer]J Vision / KACEY Tecnis ZCB00 IOL Power: + 16.0 diopters IOL Serial Number: [id number] Optic Diameter: 6.0mm Haptic/Overall Diameter: 13.0mm PHACO INFO: Dick [employer] Incurion Vision System with OZil and Active Fluidics Cumulative Dispersed Energy (CDE): 4.03 seconds SURGEON: Perry Gonzalez MD, LUIGI ANESTHESIA: Monitored Anesthesia Care (MAC), with local sub-tenon's anesthetic infiltration COMPLICATIONS: None SPECIMENS: None INDICATIONS FOR PROCEDURE: The patient is a 59-year-old gentleman with history of diabetes and myopia who has previously undergone pars plana vitrectomy with membrane peeling and endolaser in the left eye. He has undergone cataract surgery in his left eye subsequently. He has developed a significant nuclear and cortical cataract in the right eye and desires cataract surgery there and attempt to improve and maximize his vision. PROCEDURE: The correct surgical eye was identified and marked as the right eye and the pupil was dilated in the preoperative area using mydriatics and cycloplegics. The dilated pupil size was 6.0 mm. Oral sedation was administered in the form of an Imprimis MKO Melt (midazolam 3mg/ketamine 25mg/ondansetron 2mg). The patient was brought to the operating room where cardiopulmonary monitoring was instituted and surgical time-out was performed, confirming the correct operative eye and IOL power. Topical anesthesia was administered and ophthalmic povidone-iodine 5% was instilled into the conjunctival fornices. Lidocaine gel was applied to the cornea and the samantha-ocular area was prepped with Betadine 10% solution and draped in the usual sterile fashion for intraocular surgery, including an aperture drape. A Tegaderm transparent film dressing was cut in half and used to cover the lashes and lid margins. Care was taken to sequester the lashes and lid margins under the Tegaderm dressing. A lid speculum was placed between the lids of the operative eye and the Isabela-Alexandre operating microscope was maneuvered into position. Eda scissors were then used to make a conjunctival buttonhole approximately 6mm posterior to the limbus in the inferonasal quadrant. Blunt dissection was carried out to expose bare sclera, and a blunt-tipped sub-tenon?s anesthesia cannula was introduced and passed posteriorly along the globe where non- preserved plain lidocaine was injected into posterior sub-Tenon?s space. A sideport knife was used to make a paracentesis port inferiortemporally. Intraocular phenylephrine/lidocaine was injected into the anterior chamber. The anterior chamber was then filled with viscoelastic. A 2.4mm keratome knife was used to create a half-thickness groove at the limbus and then to construct a three-plane near-clear corneal tunnel extending 2.0mm into clear cornea in the superiortemporal position. . A flap was raised on the anterior capsule and capsulorhexis forceps were used to complete a continuous curvilinear capsulorhexis of 5.5 mm. Balanced salt solution was then used to perform cortical cleaving hydrodissection and nuclear hydrodelineation until the lens could be freely rotated within the capsular bag. The lens nucleus was then disassembled and removed within the capsular bag and iris plane using phacoemulsification. Residual cortical material was removed using the I/A handpiece. The posterior capsule was carefully polished to remove as much residual lens epithelial cells as safely possible. The capsular bag was then inflated and the anterior chamber deepened with viscoelastic. The lens implant described above was inserted into the capsular bag using the KACEY [place] Injector. A Kuglen hook was used to dial the IOL into position. Residual viscoelastic was then removed first from posterior to the IOL, then from the anterior chamber using the I/A handpiece. The lens implant was noted to center nicely within the capsular bag. The incisions were stromally hydrated, and the anterior chamber was reformed using BSS. Then 0.1cc of moxifloxacin 5.0mg/ml were injected into the capsular bag and anterior chamber. The incisions were checked with a Weck spear and found to be secure. Several drops of ophthalmic povidone-iodine 5% were then applied to the eye followed by two drops of Imprimis combination prednisolone/moxifloxacin/nepafenac solution. The drapes were removed and a clear plastic protective eye shield was placed over the eye. The patient was then returned to Same Day Surgery in stable condition.
[2020-08-26 10:36] VITALS: BP 116/70; PULSE 88; RESP 17; TEMP 36.2; O2SAT 98
== END 2020-08-26 10:45 | disposition home or self-care (01) ==
PROVIDERS: PCP Family Medicine; Visit Provider Ophthalmology
PROC: (CPT 66984; principal; 2020-08-26 09:15)
DX: H25.011 Cortical age-related cataract, right eye (principal); H25.11 Age-related nuclear cataract, right eye; Z98.42 Cataract extraction status, left eye; Z96.1 Presence of intraocular lens; Z79.4 Long term (current) use of insulin; E11.42 Type 2 diabetes mellitus with diabetic polyneuropathy
CPT/HCPCS: 66984; V2632

== ENCOUNTER 2020-09-12 20:59 | Outpatient (REF) | payer OTHER, SELFPAY ==
[2020-09-12 16:40] LABS: Abs Immature Grans 0.04 10^3/uL (0.0-0.06); Absolute Basophil Count 0.07 10^3/uL (0.0-0.2); Absolute Eosinophil Count 0.58 10^3/uL (0.0-0.7); Absolute Lymphocyte Count 1.38 10^3/uL (1.2-3.4); Absolute Monocyte Count 1.23 10^3/uL (0.1-0.8); Basophils % 0.6; Eosinophils % 4.8; HCT 32.7 % (40.0-50.0); HGB 10.5 g/dL (13.5-17.5); Immature Grans % 0.3; Lymphocytes % 11.4; MCH 29.4 pg (27.0-33.0); MCHC 32.1 % (32.0-36.0); MCV 91.6 fL (80-95); MPV 9.5 fL (8.0-11.0); Monocytes % 10.2; Neutrophils % 72.7; Nucleated RBC 0 %; Platelet Count 260 10^3/uL (130-400); RBC 3.57 10^6/uL (4.36-5.78); RDW 13.3 % (11.8-14.1); RDW-SD 45.1 fL
[2020-09-12 17:49] LABS: ALT 57 U/L (16-63); AST 40 U/L (15-37); Albumin 3.6 g/dL (3.4-5.0); Alkaline Phosphatase 112 U/L (46-116); Anion Gap 8.9 mmol/L (3-11); BUN 37 mg/dL (7-18); Bilirubin, Total 0.2 mg/dL (0.2-1.0); C-Reactive Protein 0.68 mg/dL (0.0-0.3); CO2 26.1 mmol/L (21.0-32.0); CREATININE 1.1 mg/dL (0.70-1.30); Calcium 9.1 mg/dL (8.5-10.1); Chloride 105 mmol/L (98-107); Creatine Kinase 238 U/L (39-308); Glucose 99 mg/dL (74-106); Potassium 5.5 mmol/L (3.5-5.1); Sodium 140 mmol/L (136-145); Total Protein 7.2 g/dL (6.4-8.2)
== END 2020-09-12 21:00 | disposition home or self-care (01) ==
LOC: LBN 20:59
PROVIDERS: PCP Family Medicine; Visit Provider Internal Medicine Infectious Disease
DX: M86.671 Other chronic osteomyelitis, right ankle and foot (principal); E10.621 Type 1 diabetes mellitus with foot ulcer
CPT/HCPCS: 80053; 82550; 85025; 86140

== ENCOUNTER 2020-09-26 11:34 | Outpatient (REF) | payer OTHER, SELFPAY ==
[2020-09-26 12:15] LABS: Abs Immature Grans 0.06 10^3/uL (0.0-0.06); Absolute Eosinophil Count 0.27 10^3/uL (0.0-0.7); Absolute Lymphocyte Count 1.64 10^3/uL (1.2-3.4); Absolute Monocyte Count 0.94 10^3/uL (0.1-0.8); Basophils % 0.6; Eosinophils % 2.5; HCT 33.4 % (40.0-50.0); HGB 10.8 g/dL (13.5-17.5); Immature Grans % 0.6; Lymphocytes % 15.1; MCH 28.7 pg (27.0-33.0); MCHC 32.3 % (32.0-36.0); MCV 88.8 fL (80-95); MPV 9.7 fL (8.0-11.0); Monocytes % 8.7; Neutrophils % 72.5; Nucleated RBC 0 %; Platelet Count 268 10^3/uL (130-400); RBC 3.76 10^6/uL (4.36-5.78); RDW 13.3 % (11.8-14.1); RDW-SD 43.5 fL; WBC 10.84 10^3/uL (4.4-10.8)
[2020-09-26 12:19] LABS: Absolute Basophil Count 0.07 10^3/uL (0.0-0.2); Absolute Neutrophil Count 7.86 10^3/uL (1.2-6.7)
[2020-09-26 12:27] LABS: ALT 53 U/L (16-63); AST 29 U/L (15-37); Albumin 3.5 g/dL (3.4-5.0); Alkaline Phosphatase 111 U/L (46-116); BUN 50 mg/dL (7-18); Bilirubin, Total 0.2 mg/dL (0.2-1.0); C-Reactive Protein 0.36 mg/dL (0.0-0.3); CREATININE 1.5 mg/dL (0.70-1.30); Calcium 8.5 mg/dL (8.5-10.1); Chloride 101 mmol/L (98-107); Creatine Kinase 168 U/L (39-308); Glucose 332 mg/dL (74-106); Sodium 134 mmol/L (136-145); Total Protein 7.1 g/dL (6.4-8.2)
[2020-09-26 12:38] LABS: Potassium 6.2 mmol/L (3.5-5.1)
== END 2020-09-26 11:35 | disposition home or self-care (01) ==
LOC: LBN 11:34
PROVIDERS: PCP Family Medicine; Visit Provider Internal Medicine Infectious Disease
DX: M86.671 Other chronic osteomyelitis, right ankle and foot (principal)
CPT/HCPCS: 80053; 82550; 85025; 86140

== ENCOUNTER 2020-10-03 10:47 | Outpatient (REF) | payer OTHER, SELFPAY ==
[2020-10-03 11:08] LABS: Abs Immature Grans 0.04 10^3/uL (0.0-0.06); Absolute Basophil Count 0.06 10^3/uL (0.0-0.2); Absolute Eosinophil Count 0.31 10^3/uL (0.0-0.7); Absolute Lymphocyte Count 1.49 10^3/uL (1.2-3.4); Absolute Monocyte Count 1.01 10^3/uL (0.1-0.8); Basophils % 0.6; HCT 32.8 % (40.0-50.0); HGB 10.7 g/dL (13.5-17.5); Immature Grans % 0.4; Lymphocytes % 14.6; MCH 28.9 pg (27.0-33.0); MCHC 32.6 % (32.0-36.0); MCV 88.6 fL (80-95); MPV 9.4 fL (8.0-11.0); Monocytes % 9.9; Neutrophils % 71.5; Nucleated RBC 0 %; Platelet Count 273 10^3/uL (130-400); RDW 13.2 % (11.8-14.1); RDW-SD 43.5 fL; WBC 10.21 10^3/uL (4.4-10.8)
[2020-10-03 11:17] LABS: ALT 57 U/L (16-63); AST 29 U/L (15-37); Albumin 3.5 g/dL (3.4-5.0); Alkaline Phosphatase 118 U/L (46-116); Anion Gap 9.9 mmol/L (3-11); BUN 34 mg/dL (7-18); Bilirubin, Total 0.2 mg/dL (0.2-1.0); C-Reactive Protein 0.93 mg/dL (0.0-0.3); CO2 25.1 mmol/L (21.0-32.0); CREATININE 1.2 mg/dL (0.70-1.30); Chloride 101 mmol/L (98-107); Creatine Kinase 241 U/L (39-308); Glucose 254 mg/dL (74-106); Potassium 5.4 mmol/L (3.5-5.1); Sodium 136 mmol/L (136-145); Total Protein 7.2 g/dL (6.4-8.2)
== END 2020-10-03 10:48 | disposition home or self-care (01) ==
LOC: LBN 10:47
PROVIDERS: PCP Family Medicine; Visit Provider Internal Medicine Infectious Disease
DX: M86.671 Other chronic osteomyelitis, right ankle and foot (principal)
CPT/HCPCS: 80053; 82550; 85025; 86140

== ENCOUNTER 2020-10-10 10:11 | Outpatient (REF) | payer OTHER, SELFPAY ==
[2020-10-10 10:37] LABS: Abs Immature Grans 0.03 10^3/uL (0.0-0.06); Absolute Basophil Count 0.04 10^3/uL (0.0-0.2); Absolute Eosinophil Count 0.29 10^3/uL (0.0-0.7); Absolute Monocyte Count 1.06 10^3/uL (0.1-0.8); Basophils % 0.4; Eosinophils % 3.1; HCT 31.4 % (40.0-50.0); HGB 10.2 g/dL (13.5-17.5); Immature Grans % 0.3; Lymphocytes % 15.2; MCH 29.1 pg (27.0-33.0); MCHC 32.5 % (32.0-36.0); MCV 89.7 fL (80-95); MPV 9.2 fL (8.0-11.0); Monocytes % 11.5; Neutrophils % 69.5; Nucleated RBC 0 %; Platelet Count 259 10^3/uL (130-400); RDW 13.2 % (11.8-14.1); RDW-SD 43.3 fL; WBC 9.22 10^3/uL (4.4-10.8)
[2020-10-10 10:45] LABS: ALT 48 U/L (16-63); AST 34 U/L (15-37); Albumin 3.4 g/dL (3.4-5.0); Alkaline Phosphatase 105 U/L (46-116); Anion Gap 9.7 mmol/L (3-11); BUN 25 mg/dL (7-18); Bilirubin, Total 0.2 mg/dL (0.2-1.0); C-Reactive Protein 0.48 mg/dL (0.0-0.3); CO2 27.3 mmol/L (21.0-32.0); Calcium 8.8 mg/dL (8.5-10.1); Chloride 102 mmol/L (98-107); Creatine Kinase 211 U/L (39-308); Glucose 151 mg/dL (74-106); Potassium 4.6 mmol/L (3.5-5.1); Sodium 139 mmol/L (136-145)
== END 2020-10-10 10:12 | disposition home or self-care (01) ==
LOC: LBN 10:11
PROVIDERS: PCP Family Medicine; Visit Provider Internal Medicine Infectious Disease
DX: M86.671 Other chronic osteomyelitis, right ankle and foot (principal)
CPT/HCPCS: 80053; 82550; 85025; 86140

== ENCOUNTER 2020-10-17 11:12 | Outpatient (REF) | payer OTHER, SELFPAY ==
[2020-10-17 11:38] LABS: Abs Immature Grans 0.05 10^3/uL (0.0-0.06); Absolute Basophil Count 0.06 10^3/uL (0.0-0.2); Absolute Eosinophil Count 0.26 10^3/uL (0.0-0.7); Absolute Lymphocyte Count 1.76 10^3/uL (1.2-3.4); Absolute Monocyte Count 1.27 10^3/uL (0.1-0.8); Absolute Neutrophil Count 7.09 10^3/uL (1.2-6.7); Basophils % 0.6; Eosinophils % 2.5; HCT 34.3 % (40.0-50.0); HGB 11.1 g/dL (13.5-17.5); Immature Grans % 0.5; Lymphocytes % 16.8; MCH 28.8 pg (27.0-33.0); MCHC 32.4 % (32.0-36.0); MCV 89.1 fL (80-95); MPV 9.6 fL (8.0-11.0); Monocytes % 12.1; Neutrophils % 67.5; Nucleated RBC 0 %; Platelet Count 300 10^3/uL (130-400); RBC 3.85 10^6/uL (4.36-5.78); RDW 13.2 % (11.8-14.1); RDW-SD 43.2 fL; WBC 10.49 10^3/uL (4.4-10.8)
[2020-10-17 11:52] LABS: ALT 95 U/L (16-63); AST 84 U/L (15-37); Albumin 3.5 g/dL (3.4-5.0); Alkaline Phosphatase 125 U/L (46-116); Anion Gap 11.7 mmol/L (3-11); BUN 25 mg/dL (7-18); Bilirubin, Total 0.3 mg/dL (0.2-1.0); C-Reactive Protein 0.39 mg/dL (0.0-0.3); CO2 25.3 mmol/L (21.0-32.0); CREATININE 1.1 mg/dL (0.70-1.30); Calcium 8.8 mg/dL (8.5-10.1); Chloride 102 mmol/L (98-107); Creatine Kinase 249 U/L (39-308); Glucose 164 mg/dL (74-106); Sodium 139 mmol/L (136-145); Total Protein 7.4 g/dL (6.4-8.2)
== END 2020-10-17 11:13 | disposition home or self-care (01) ==
LOC: LBN 11:12
PROVIDERS: PCP Family Medicine; Visit Provider Internal Medicine Infectious Disease
DX: E10.621 Type 1 diabetes mellitus with foot ulcer (principal); M86.671 Other chronic osteomyelitis, right ankle and foot; A49.02 Methicillin resistant Staphylococcus aureus infection, unspecified site; Z79.2 Long term (current) use of antibiotics
CPT/HCPCS: 80053; 82550; 85025; 86140

== ENCOUNTER 2020-10-21 21:47 | Outpatient (REF) | payer OTHER, SELFPAY ==
[2020-10-21 14:01] LABS: ALT 66 U/L (16-63); AST 31 U/L (15-37); Albumin 3.3 g/dL (3.4-5.0); Alkaline Phosphatase 114 U/L (46-116); Anion Gap 10.6 mmol/L (3-11); BUN 30 mg/dL (7-18); Bilirubin, Total 0.3 mg/dL (0.2-1.0); CO2 25.4 mmol/L (21.0-32.0); CREATININE 1.2 mg/dL (0.70-1.30); Calcium 8.8 mg/dL (8.5-10.1); Chloride 101 mmol/L (98-107); Creatine Kinase 176 U/L (39-308); Glucose 278 mg/dL (74-106); Potassium 4.7 mmol/L (3.5-5.1); Sodium 137 mmol/L (136-145); Total Protein 7.1 g/dL (6.4-8.2)
== END 2020-10-21 21:48 | disposition home or self-care (01) ==
LOC: LBN 21:47
PROVIDERS: PCP Family Medicine; Visit Provider Internal Medicine Infectious Disease
DX: M86.671 Other chronic osteomyelitis, right ankle and foot (principal)
CPT/HCPCS: 80053; 82550

== ENCOUNTER 2021-03-13 20:25 | Outpatient (REF) | payer OTHER, SELFPAY ==
[2021-03-13 22:21] LABS: Abs Immature Grans 0.27 10^3/uL (0.0-0.06); Absolute Basophil Count 0.05 10^3/uL (0.0-0.2); Absolute Eosinophil Count 0.35 10^3/uL (0.0-0.7); Absolute Lymphocyte Count 1.86 10^3/uL (1.2-3.4); Basophils % 0.4; HCT 32.2 % (40.0-50.0); HGB 9.9 g/dL (13.5-17.5); Immature Grans % 2.3; Lymphocytes % 16.1; MCH 28.3 pg (27.0-33.0); MCHC 30.7 % (32.0-36.0); Monocytes % 9.5; Neutrophils % 68.7; Nucleated RBC 0 %; Platelet Count 356 10^3/uL (130-400); RDW 13.6 % (11.8-14.1); RDW-SD 44.6 fL; WBC 11.57 10^3/uL (4.4-10.8)
[2021-03-13 22:23] LABS: Absolute Neutrophil Count 7.95 10^3/uL (1.2-6.7)
[2021-03-13 22:32] LABS: ALT 41 U/L (16-63); AST 21 U/L (15-37); Albumin 3.1 g/dL (3.4-5.0); Alkaline Phosphatase 155 U/L (46-116); Anion Gap 8.6 mmol/L (3-11); BUN 34 mg/dL (7-18); Bilirubin, Total 0.1 mg/dL (0.2-1.0); C-Reactive Protein 1.44 mg/dL (0.0-0.3); CO2 26.4 mmol/L (21.0-32.0); CREATININE 1.2 mg/dL (0.70-1.30); Calcium 8.7 mg/dL (8.5-10.1); Chloride 105 mmol/L (98-107); Glucose 166 mg/dL (74-106); Potassium 5.4 mmol/L (3.5-5.1); Sodium 140 mmol/L (136-145); Total Protein 6.9 g/dL (6.4-8.2)
== END 2021-03-13 20:26 | disposition home or self-care (01) ==
LOC: LBN 20:25
PROVIDERS: PCP Family Medicine; Visit Provider Specialist
DX: M86.671 Other chronic osteomyelitis, right ankle and foot (principal); R78.81 Bacteremia
CPT/HCPCS: 80053; 85025; 86140

== ENCOUNTER 2021-03-20 18:59 | Outpatient (REF) | payer OTHER, SELFPAY ==
[2021-03-20 20:09] LABS: Abs Immature Grans 0.04 10^3/uL (0.0-0.06); Absolute Basophil Count 0.03 10^3/uL (0.0-0.2); Absolute Eosinophil Count 0.14 10^3/uL (0.0-0.7); Absolute Lymphocyte Count 1.37 10^3/uL (1.2-3.4); Absolute Monocyte Count 0.78 10^3/uL (0.1-0.8); Absolute Neutrophil Count 6.55 10^3/uL (1.2-6.7); Basophils % 0.3; Eosinophils % 1.6; HCT 32.3 % (40.0-50.0); HGB 9.8 g/dL (13.5-17.5); Immature Grans % 0.4; Lymphocytes % 15.4; MCHC 30.3 % (32.0-36.0); MCV 92.3 fL (80-95); Monocytes % 8.8; Neutrophils % 73.5; Nucleated RBC 0 %; Platelet Count 306 10^3/uL (130-400); RDW 13.8 % (11.8-14.1); RDW-SD 46.5 fL; WBC 8.91 10^3/uL (4.4-10.8)
[2021-03-20 20:34] LABS: ALT 28 U/L (16-63); AST 25 U/L (15-37); Albumin 3.3 g/dL (3.4-5.0); Alkaline Phosphatase 138 U/L (46-116); Anion Gap 9.6 mmol/L (3-11); BUN 30 mg/dL (7-18); Bilirubin, Total 0.2 mg/dL (0.2-1.0); CO2 25.4 mmol/L (21.0-32.0); CREATININE 0.9 mg/dL (0.70-1.30); Calcium 8.6 mg/dL (8.5-10.1); Chloride 103 mmol/L (98-107); Glucose 191 mg/dL (74-106); Potassium 4.7 mmol/L (3.5-5.1); Sodium 138 mmol/L (136-145); Total Protein 7.3 g/dL (6.4-8.2)
[2021-03-21 11:27] LABS: C-Reactive Protein 0.97 mg/dL (0.0-0.3)
== END 2021-03-20 19:00 | disposition home or self-care (01) ==
LOC: LBN 18:59
PROVIDERS: Internal Medicine Infectious Disease; PCP Family Medicine; Visit Provider Internal Medicine Infectious Disease
DX: Z79.2 Long term (current) use of antibiotics (principal); M86.8X8 Other osteomyelitis, other site; R78.81 Bacteremia; E10.621 Type 1 diabetes mellitus with foot ulcer
CPT/HCPCS: 80053; 85025; 86140

== ENCOUNTER 2021-03-27 15:24 | Outpatient (REF) | payer OTHER, SELFPAY ==
[2021-03-27 12:37] LABS: Abs Immature Grans 0.03 10^3/uL (0.0-0.06); Absolute Basophil Count 0.04 10^3/uL (0.0-0.2); Absolute Eosinophil Count 0.22 10^3/uL (0.0-0.7); Absolute Monocyte Count 1.02 10^3/uL (0.1-0.8); Absolute Neutrophil Count 5.65 10^3/uL (1.2-6.7); Basophils % 0.5; Eosinophils % 2.6; HCT 32.9 % (40.0-50.0); HGB 10.2 g/dL (13.5-17.5); Immature Grans % 0.4; Lymphocytes % 16.7; MCH 28.1 pg (27.0-33.0); MCV 90.6 fL (80-95); MPV 9.3 fL (8.0-11.0); Monocytes % 12.2; Neutrophils % 67.6; Nucleated RBC 0 %; Platelet Count 291 10^3/uL (130-400); RBC 3.63 10^6/uL (4.36-5.78); RDW 13.9 % (11.8-14.1); RDW-SD 46.3 fL; WBC 8.36 10^3/uL (4.4-10.8)
[2021-03-27 12:47] LABS: ALT 29 U/L (16-63); AST 22 U/L (15-37); Albumin 3.2 g/dL (3.4-5.0); Alkaline Phosphatase 136 U/L (46-116); Anion Gap 4.8 mmol/L (3-11); BUN 25 mg/dL (7-18); Bilirubin, Total 0.1 mg/dL (0.2-1.0); CO2 29.2 mmol/L (21.0-32.0); CREATININE 1.1 mg/dL (0.70-1.30); Calcium 8.7 mg/dL (8.5-10.1); Chloride 103 mmol/L (98-107); Glucose 250 mg/dL (74-106); Sodium 137 mmol/L (136-145); Total Protein 7.2 g/dL (6.4-8.2)
[2021-03-27 12:50] LABS: Potassium 5.4 mmol/L (3.5-5.1)
== END 2021-03-27 15:25 | disposition home or self-care (01) ==
LOC: LBN 15:24
PROVIDERS: PCP Family Medicine; Visit Provider Internal Medicine Infectious Disease
DX: M86.9 Osteomyelitis, unspecified (principal); R78.81 Bacteremia; Z79.2 Long term (current) use of antibiotics
CPT/HCPCS: 80053; 85025; 86140

== ENCOUNTER 2021-04-03 11:58 | Outpatient (REF) | payer OTHER, SELFPAY ==
[2021-04-03 14:51] LABS: ALT 32 U/L (16-63); AST 33 U/L (15-37); Albumin 3.4 g/dL (3.4-5.0); Alkaline Phosphatase 138 U/L (46-116); Anion Gap 6.4 mmol/L (3-11); BUN 25 mg/dL (7-18); Bilirubin, Total 0.2 mg/dL (0.2-1.0); CO2 28.6 mmol/L (21.0-32.0); CREATININE 0.9 mg/dL (0.70-1.30); Calcium 8.4 mg/dL (8.5-10.1); Chloride 104 mmol/L (98-107); Glucose 181 mg/dL (74-106); Potassium 4.4 mmol/L (3.5-5.1); Sodium 139 mmol/L (136-145); Total Protein 7.2 g/dL (6.4-8.2)
[2021-04-03 20:30] LABS: Abs Immature Grans 0.04 10^3/uL (0.0-0.06); Absolute Basophil Count 0.04 10^3/uL (0.0-0.2); Absolute Eosinophil Count 0.24 10^3/uL (0.0-0.7); Absolute Lymphocyte Count 1.52 10^3/uL (1.2-3.4); Absolute Monocyte Count 1.02 10^3/uL (0.1-0.8); Absolute Neutrophil Count 6.58 10^3/uL (1.2-6.7); Basophils % 0.4; Eosinophils % 2.5; HCT 32.3 % (40.0-50.0); HGB 9.7 g/dL (13.5-17.5); Immature Grans % 0.4; Lymphocytes % 16.1; MCV 93.1 fL (80-95); MPV 9.1 fL (8.0-11.0); Monocytes % 10.8; Neutrophils % 69.8; Nucleated RBC 0 %; Platelet Count 248 10^3/uL (130-400); RBC 3.47 10^6/uL (4.36-5.78); RDW 14.5 % (11.8-14.1); WBC 9.44 10^3/uL (4.4-10.8)
[2021-04-03 20:41] LABS: C-Reactive Protein 1.09 mg/dL (0.0-0.3)
== END 2021-04-03 11:59 | disposition home or self-care (01) ==
LOC: LBN 11:58
PROVIDERS: PCP Family Medicine; Visit Provider Internal Medicine Infectious Disease
DX: M86.8X8 Other osteomyelitis, other site (principal); A49.01 Methicillin susceptible Staphylococcus aureus infection, unspecified site; Z79.2 Long term (current) use of antibiotics; E10.69 Type 1 diabetes mellitus with other specified complication
CPT/HCPCS: 80053; 85025; 86140

== ENCOUNTER 2021-04-10 16:33 | Outpatient (REF) | payer OTHER, SELFPAY ==
[2021-04-10 17:04] LABS: Abs Immature Grans 0.05 10^3/uL (0.0-0.06); Absolute Basophil Count 0.03 10^3/uL (0.0-0.2); Absolute Eosinophil Count 0.26 10^3/uL (0.0-0.7); Absolute Lymphocyte Count 1.53 10^3/uL (1.2-3.4); Absolute Monocyte Count 0.99 10^3/uL (0.1-0.8); Absolute Neutrophil Count 6.69 10^3/uL (1.2-6.7); Basophils % 0.3; Eosinophils % 2.7; HCT 31.2 % (40.0-50.0); HGB 9.7 g/dL (13.5-17.5); Immature Grans % 0.5; MCH 27.9 pg (27.0-33.0); MCHC 31.1 % (32.0-36.0); MCV 89.7 fL (80-95); Monocytes % 10.4; Neutrophils % 70.1; Nucleated RBC 0 %; Platelet Count 290 10^3/uL (130-400); RBC 3.48 10^6/uL (4.36-5.78); RDW 14.3 % (11.8-14.1); RDW-SD 47.4 fL; WBC 9.55 10^3/uL (4.4-10.8)
[2021-04-10 17:50] LABS: ALT 35 U/L (16-63); AST 26 U/L (15-37); Albumin 3.4 g/dL (3.4-5.0); Alkaline Phosphatase 140 U/L (46-116); Anion Gap 9.2 mmol/L (3-11); BUN 25 mg/dL (7-18); Bilirubin, Total 0.2 mg/dL (0.2-1.0); C-Reactive Protein 1.09 mg/dL (0.0-0.3); CO2 25.8 mmol/L (21.0-32.0); CREATININE 1.1 mg/dL (0.70-1.30); Calcium 8.5 mg/dL (8.5-10.1); Chloride 104 mmol/L (98-107); Glucose 143 mg/dL (74-106); Potassium 4.2 mmol/L (3.5-5.1); Sodium 139 mmol/L (136-145); Total Protein 7.2 g/dL (6.4-8.2)
== END 2021-04-10 16:34 | disposition home or self-care (01) ==
LOC: LBN 16:33
PROVIDERS: PCP Family Medicine; Visit Provider Internal Medicine Infectious Disease
DX: M86.8X8 Other osteomyelitis, other site (principal); A49.01 Methicillin susceptible Staphylococcus aureus infection, unspecified site; E10.69 Type 1 diabetes mellitus with other specified complication; R78.81 Bacteremia; Z79.2 Long term (current) use of antibiotics
CPT/HCPCS: 80053; 85025; 86140

== ENCOUNTER 2023-05-13 14:45 | Outpatient (REF) | payer BC, SELFPAY ==
[2023-05-13 15:59] LABS: Abs Immature Grans 0.07 10^3/uL (0.0-0.06); Absolute Basophil Count 0.03 10^3/uL (0.0-0.2); Absolute Eosinophil Count 0.18 10^3/uL (0.0-0.7); Absolute Lymphocyte Count 1.28 10^3/uL (1.2-3.4); Absolute Monocyte Count 1.06 10^3/uL (0.1-0.8); Absolute Neutrophil Count 7.58 10^3/uL (1.2-6.7); Basophils % 0.3; Eosinophils % 1.8; HCT 29.4 % (40.0-50.0); HGB 9.3 g/dL (13.5-17.5); Immature Grans % 0.7; Lymphocytes % 12.5; MCHC 31.6 % (32.0-36.0); MCV 89 fL (80-95); Monocytes % 10.4; Neutrophils % 74.3; Platelet Count 366 10^3/uL (130-400); RBC 3.32 10^6/uL (4.36-5.78); RDW-SD 42.2 fL
== END 2023-05-13 14:46 | disposition home or self-care (01) ==
LOC: NCHCN 14:45
PROVIDERS: PCP Family Medicine; Visit Provider Family Medicine
DX: S91.301D Unspecified open wound, right foot, subsequent encounter (principal)
CPT/HCPCS: 80053; 80069; 85025

== ENCOUNTER 2023-05-14 15:18 | Outpatient (REF) | payer BC, SELFPAY ==
[2023-05-14 20:04] LABS: Absolute Basophil Count 0.04 10^3/uL (0.0-0.2); Absolute Eosinophil Count 0.18 10^3/uL (0.0-0.7); Absolute Monocyte Count 1.25 10^3/uL (0.1-0.8); Absolute Neutrophil Count 8.29 10^3/uL (1.2-6.7); Basophils % 0.3; Eosinophils % 1.5; HCT 32.7 % (40.0-50.0); HGB 10.3 g/dL (13.5-17.5); Immature Grans % 0.8; Lymphocytes % 19.6; MCH 28.2 pg (27.0-33.0); MCHC 31.5 % (32.0-36.0); MCV 90 fL (80-95); MPV 9.2 fL (8.0-11.0); Monocytes % 10.2; Neutrophils % 67.6; Platelet Count 443 10^3/uL (130-400); RBC 3.65 10^6/uL (4.36-5.78); RDW 13.1 % (11.8-14.1); RDW-SD 42.9 fL; WBC 12.26 10^3/uL (4.4-10.8)
[2023-05-14 20:24] LABS: ALT 34 U/L (16-63); AST 32 U/L (15-37); Albumin 3.3 g/dL (3.4-5.0); Alkaline Phosphatase 177 U/L (46-116); Anion Gap 10.2 mmol/L (3-11); BUN 26 mg/dL (7-18); Bilirubin, Total 0.1 mg/dL (0.2-1.0); C-Reactive Protein 2.24 mg/dL (0.0-0.3); CO2 26.8 mmol/L (21.0-32.0); Calcium 9.8 mg/dL (8.5-10.1); Chloride 103 mmol/L (98-107); Glucose 85 mg/dL (74-106); Potassium 5.2 mmol/L (3.5-5.1); Sodium 140 mmol/L (136-145); Total Protein 7.5 g/dL (6.4-8.2)
== END 2023-05-14 15:19 | disposition home or self-care (01) ==
LOC: LBN 15:18
PROVIDERS: PCP Family Medicine; Visit Provider Family Medicine
DX: Z79.2 Long term (current) use of antibiotics (principal)
CPT/HCPCS: 80053; 85025; 86140

== ENCOUNTER 2023-05-21 14:23 | Outpatient (REF) | payer BC, SELFPAY ==
[2023-05-21 15:36] LABS: Abs Immature Grans 0.09 10^3/uL (0.0-0.06); Absolute Basophil Count 0.04 10^3/uL (0.0-0.2); Absolute Eosinophil Count 0.18 10^3/uL (0.0-0.7); Absolute Lymphocyte Count 1.37 10^3/uL (1.2-3.4); Basophils % 0.3; Eosinophils % 1.5; HCT 27.8 % (40.0-50.0); HGB 8.5 g/dL (13.5-17.5); Immature Grans % 0.7; Lymphocytes % 11.3; MCH 27.4 pg (27.0-33.0); MCHC 30.6 % (32.0-36.0); MCV 90 fL (80-95); MPV 9.1 fL (8.0-11.0); Monocytes % 9.3; Neutrophils % 76.9; Platelet Count 364 10^3/uL (130-400); RDW 13.2 % (11.8-14.1); RDW-SD 42.8 fL; WBC 12.09 10^3/uL (4.4-10.8)
[2023-05-21 15:39] LABS: Absolute Monocyte Count 1.12 10^3/uL (0.1-0.8)
[2023-05-21 15:54] LABS: ALT 28 U/L (16-63); AST 30 U/L (15-37); Alkaline Phosphatase 153 U/L (46-116); Anion Gap 6.3 mmol/L (3-11); BUN 27 mg/dL (7-18); Bilirubin, Total 0.2 mg/dL (0.2-1.0); C-Reactive Protein 1.27 mg/dL (0.0-0.3); CO2 25.7 mmol/L (21.0-32.0); CREATININE 1.2 mg/dL (0.70-1.30); Calcium 9.2 mg/dL (8.5-10.1); Chloride 103 mmol/L (98-107); Estimated GFR 68.38 (mL/min/1.73m2); Glucose 218 mg/dL (74-106); Potassium 5.6 mmol/L (3.5-5.1); Sodium 135 mmol/L (136-145); Total Protein 6.7 g/dL (6.4-8.2)
== END 2023-05-21 14:24 | disposition home or self-care (01) ==
LOC: LBN 14:23
PROVIDERS: PCP Family Medicine; Visit Provider Family Medicine
DX: Z79.2 Long term (current) use of antibiotics (principal)
CPT/HCPCS: 80053; 85025; 86140

== ENCOUNTER 2023-05-27 17:36 | Outpatient (REF) | payer BC, SELFPAY ==
[2023-05-27 19:43] LABS: Abs Immature Grans 0.06 10^3/uL (0.0-0.06); Absolute Lymphocyte Count 1.42 10^3/uL (1.2-3.4); Absolute Monocyte Count 1.59 10^3/uL (0.1-0.8); Basophils % 0.2; Eosinophils % 2.9; HCT 27.9 % (40.0-50.0); HGB 8.8 g/dL (13.5-17.5); Immature Grans % 0.5; Lymphocytes % 11.6; MCH 27.9 pg (27.0-33.0); MCHC 31.5 % (32.0-36.0); MCV 89 fL (80-95); MPV 9.1 fL (8.0-11.0); Neutrophils % 71.8; Platelet Count 331 10^3/uL (130-400); RBC 3.15 10^6/uL (4.36-5.78); RDW 13.8 % (11.8-14.1); RDW-SD 44.2 fL; WBC 12.26 10^3/uL (4.4-10.8)
[2023-05-27 19:46] LABS: Absolute Basophil Count 0.02 10^3/uL (0.0-0.2); Absolute Eosinophil Count 0.36 10^3/uL (0.0-0.7)
[2023-05-27 19:57] LABS: ALT 33 U/L (16-63); AST 32 U/L (15-37); Alkaline Phosphatase 159 U/L (46-116); Anion Gap 8.5 mmol/L (3-11); BUN 37 mg/dL (7-18); Bilirubin, Total 0.1 mg/dL (0.2-1.0); C-Reactive Protein 2.23 mg/dL (0.0-0.3); CO2 25.5 mmol/L (21.0-32.0); CREATININE 1.1 mg/dL (0.70-1.30); Calcium 9.3 mg/dL (8.5-10.1); Chloride 101 mmol/L (98-107); Glucose 189 mg/dL (74-106); Potassium 5.4 mmol/L (3.5-5.1); Sodium 135 mmol/L (136-145); Total Protein 6.9 g/dL (6.4-8.2)
[2023-05-27 19:58] LABS: Diff Comment Diff Reviewed
[2023-05-27 19:59] LABS: Anisocytosis 1+
== END 2023-05-27 17:37 | disposition home or self-care (01) ==
LOC: LBN 17:36
PROVIDERS: PCP Family Medicine; Referring Provider Family Medicine; Visit Provider Internal Medicine Infectious Disease
DX: E10.29 Type 1 diabetes mellitus with other diabetic kidney complication (principal); Z79.2 Long term (current) use of antibiotics; Z45.2 Encounter for adjustment and management of vascular access device
CPT/HCPCS: 80053; 85025; 86140

== ENCOUNTER 2023-06-03 16:09 | Outpatient (REF) | payer BC, SELFPAY ==
[2023-06-03 17:37] LABS: Abs Immature Grans 0.05 10^3/uL (0.0-0.06); Absolute Basophil Count 0.03 10^3/uL (0.0-0.2); Absolute Eosinophil Count 0.36 10^3/uL (0.0-0.7); Absolute Lymphocyte Count 1.22 10^3/uL (1.2-3.4); Absolute Neutrophil Count 6.48 10^3/uL (1.2-6.7); Basophils % 0.3; Eosinophils % 3.9; HCT 28.5 % (40.0-50.0); HGB 8.8 g/dL (13.5-17.5); Immature Grans % 0.5; Lymphocytes % 13.2; MCH 27.4 pg (27.0-33.0); MCHC 30.9 % (32.0-36.0); MCV 89 fL (80-95); MPV 8.9 fL (8.0-11.0); Monocytes % 11.9; Neutrophils % 70.2; Platelet Count 365 10^3/uL (130-400); RBC 3.21 10^6/uL (4.36-5.78); RDW 14.2 % (11.8-14.1); RDW-SD 45.8 fL; WBC 9.24 10^3/uL (4.4-10.8)
[2023-06-03 17:47] LABS: ALT 28 U/L (16-63); AST 19 U/L (15-37); Albumin 3.2 g/dL (3.4-5.0); Alkaline Phosphatase 164 U/L (46-116); Anion Gap 10.9 mmol/L (3-11); BUN 28 mg/dL (7-18); Bilirubin, Total 0.1 mg/dL (0.2-1.0); C-Reactive Protein 1.52 mg/dL (0.0-0.3); CO2 25.1 mmol/L (21.0-32.0); CREATININE 1.1 mg/dL (0.70-1.30); Calcium 9.3 mg/dL (8.5-10.1); Chloride 101 mmol/L (98-107); Glucose 339 mg/dL (74-106); Potassium 5.7 mmol/L (3.5-5.1); Sodium 137 mmol/L (136-145); Total Protein 6.8 g/dL (6.4-8.2)
== END 2023-06-03 16:10 | disposition home or self-care (01) ==
LOC: LBN 16:09
PROVIDERS: PCP Family Medicine; Visit Provider Internal Medicine Infectious Disease
DX: Z79.2 Long term (current) use of antibiotics (principal); Z89.411 Acquired absence of right great toe
CPT/HCPCS: 80053; 85025; 86140

== ENCOUNTER 2023-06-10 15:55 | Outpatient (REF) | payer BC, SELFPAY ==
[2023-06-10 16:37] LABS: Abs Immature Grans 0.04 10^3/uL (0.0-0.06); Absolute Basophil Count 0.03 10^3/uL (0.0-0.2); Absolute Eosinophil Count 0.23 10^3/uL (0.0-0.7); Absolute Lymphocyte Count 1.59 10^3/uL (1.2-3.4); Absolute Monocyte Count 1.17 10^3/uL (0.1-0.8); Basophils % 0.3; Eosinophils % 2.1; HCT 29.6 % (40.0-50.0); HGB 9.3 g/dL (13.5-17.5); Immature Grans % 0.4; Lymphocytes % 14.2; MCH 27.3 pg (27.0-33.0); MCHC 31.4 % (32.0-36.0); MCV 87 fL (80-95); MPV 8.9 fL (8.0-11.0); Monocytes % 10.5; Neutrophils % 72.5; Platelet Count 361 10^3/uL (130-400); RBC 3.41 10^6/uL (4.36-5.78); RDW 13.9 % (11.8-14.1); RDW-SD 43.5 fL; WBC 11.19 10^3/uL (4.4-10.8)
[2023-06-10 16:39] LABS: Absolute Neutrophil Count 8.11 10^3/uL (1.2-6.7)
[2023-06-10 16:44] LABS: ALT 29 U/L (16-63); AST 25 U/L (15-37); Albumin 3.3 g/dL (3.4-5.0); Alkaline Phosphatase 154 U/L (46-116); Anion Gap 9.1 mmol/L (3-11); BUN 32 mg/dL (7-18); Bilirubin, Total 0.1 mg/dL (0.2-1.0); C-Reactive Protein 3.26 mg/dL (0.0-0.3); CO2 24.9 mmol/L (21.0-32.0); CREATININE 1.3 mg/dL (0.70-1.30); Calcium 9.2 mg/dL (8.5-10.1); Chloride 100 mmol/L (98-107); Estimated GFR 62.11 (mL/min/1.73m2); Glucose 283 mg/dL (74-106); Potassium 4.5 mmol/L (3.5-5.1); Sodium 134 mmol/L (136-145)
== END 2023-06-10 15:56 | disposition home or self-care (01) ==
LOC: LBN 15:55
PROVIDERS: PCP Family Medicine; Visit Provider Family Medicine
DX: L97.311 Non-pressure chronic ulcer of right ankle limited to breakdown of skin (principal); Z74.2 Need for assistance at home and no other household member able to render care
CPT/HCPCS: 80053; 85025; 86140

== ENCOUNTER 2023-08-12 16:44 | Outpatient (REF) | payer BC, SELFPAY ==
[2023-08-12 18:08] LABS: Abs Immature Grans 0.19 10^3/uL (0.0-0.06); Absolute Basophil Count 0.06 10^3/uL (0.0-0.2); Absolute Lymphocyte Count 1.56 10^3/uL (1.2-3.4); Absolute Neutrophil Count 15.14 10^3/uL (1.2-6.7); Basophils % 0.3; Eosinophils % 2.2; HCT 28.8 % (40.0-50.0); Lymphocytes % 8.3; MCH 25.4 pg (27.0-33.0); MCHC 31.3 % (32.0-36.0); MCV 81 fL (80-95); MPV 8.9 fL (8.0-11.0); Monocytes % 7.9; Neutrophils % 80.3; Platelet Count 461 10^3/uL (130-400); RBC 3.55 10^6/uL (4.36-5.78); RDW 13.7 % (11.8-14.1); RDW-SD 40.7 fL; WBC 18.85 10^3/uL (4.4-10.8)
[2023-08-12 18:10] LABS: Absolute Eosinophil Count 0.41 10^3/uL (0.0-0.7); Absolute Monocyte Count 1.49 10^3/uL (0.1-0.8)
[2023-08-12 18:21] LABS: ALT 27 U/L (16-63); AST 26 U/L (15-37); Alkaline Phosphatase 154 U/L (46-116); Anion Gap 13.3 mmol/L (3-11); BUN 35 mg/dL (7-18); Bilirubin, Total 0.2 mg/dL (0.2-1.0); C-Reactive Protein 6.46 mg/dL (0.0-0.3); CO2 22.7 mmol/L (21.0-32.0); CREATININE 1.1 mg/dL (0.70-1.30); Calcium 9.4 mg/dL (8.5-10.1); Chloride 102 mmol/L (98-107); Creatine Kinase 173 U/L (39-308); Glucose 109 mg/dL (74-106); Potassium 5.3 mmol/L (3.5-5.1); Sodium 138 mmol/L (136-145); Total Protein 7.2 g/dL (6.4-8.2)
== END 2023-08-12 16:45 | disposition home or self-care (01) ==
LOC: LBN 16:44
PROVIDERS: PCP Family Medicine; Visit Provider Internal Medicine Infectious Disease
DX: M86.171 Other acute osteomyelitis, right ankle and foot (principal)
CPT/HCPCS: 80053; 82550; 85025; 86140

== ENCOUNTER 2023-08-19 13:39 | Outpatient (REF) | payer BC, OTHER, SELFPAY ==
[2023-08-19 14:21] LABS: Abs Immature Grans 0.09 10^3/uL (0.0-0.06); Absolute Eosinophil Count 0.41 10^3/uL (0.0-0.7); Absolute Monocyte Count 1.49 10^3/uL (0.1-0.8); Basophils % 0.5; Eosinophils % 2.7; HCT 26.6 % (40.0-50.0); HGB 8.3 g/dL (13.5-17.5); Immature Grans % 0.6; Lymphocytes % 10.2; MCH 25.2 pg (27.0-33.0); MCHC 31.2 % (32.0-36.0); MCV 81 fL (80-95); MPV 9.2 fL (8.0-11.0); Monocytes % 9.7; Neutrophils % 76.3; Platelet Count 425 10^3/uL (130-400); RBC 3.29 10^6/uL (4.36-5.78); RDW 13.7 % (11.8-14.1); RDW-SD 40.2 fL; WBC 15.35 10^3/uL (4.4-10.8)
[2023-08-19 14:24] LABS: Absolute Basophil Count 0.08 10^3/uL (0.0-0.2); Absolute Lymphocyte Count 1.57 10^3/uL (1.2-3.4); Absolute Neutrophil Count 11.71 10^3/uL (1.2-6.7)
[2023-08-19 14:26] LABS: ALT 27 U/L (16-63); AST 26 U/L (15-37); Albumin 2.7 g/dL (3.4-5.0); Alkaline Phosphatase 145 U/L (46-116); Anion Gap 9.9 mmol/L (3-11); BUN 30 mg/dL (7-18); Bilirubin, Total 0.2 mg/dL (0.2-1.0); C-Reactive Protein 8.02 mg/dL (0.0-0.3); CO2 26.1 mmol/L (21.0-32.0); CREATININE 1.2 mg/dL (0.70-1.30); Chloride 104 mmol/L (98-107); Estimated GFR 68.38 (mL/min/1.73m2); Glucose 100 mg/dL (74-106); Potassium 4.8 mmol/L (3.5-5.1); Sodium 140 mmol/L (136-145); Total Protein 6.6 g/dL (6.4-8.2)
[2023-08-19 16:42] LABS: Creatine Kinase 135 U/L (39-308)
== END 2023-08-19 13:40 | disposition home or self-care (01) ==
LOC: LBN 13:39
PROVIDERS: PCP Family Medicine; Visit Provider Internal Medicine Infectious Disease
DX: M86.171 Other acute osteomyelitis, right ankle and foot (principal)
CPT/HCPCS: 80053; 82550; 85025; 86140

== ENCOUNTER 2023-09-09 13:52 | Outpatient (REF) | payer BC, SELFPAY ==
[2023-09-09 15:58] LABS: Abs Immature Grans 0.18 10^3/uL (0.0-0.06); Basophils % 0.4; Eosinophils % 1.4; HCT 30.8 % (40.0-50.0); HGB 9.3 g/dL (13.5-17.5); Lymphocytes % 4.8; MCH 24.3 pg (27.0-33.0); MCHC 30.2 % (32.0-36.0); MCV 81 fL (80-95); MPV 9.9 fL (8.0-11.0); Monocytes % 3.2; Neutrophils % 89.2; Platelet Count 398 10^3/uL (130-400); RBC 3.82 10^6/uL (4.36-5.78); RDW 17.7 % (11.8-14.1); RDW-SD 51.5 fL; WBC 18.85 10^3/uL (4.4-10.8)
[2023-09-09 16:01] LABS: Absolute Basophil Count 0.08 10^3/uL (0.0-0.2); Absolute Eosinophil Count 0.26 10^3/uL (0.0-0.7); Absolute Neutrophil Count 16.81 10^3/uL (1.2-6.7)
[2023-09-09 16:24] LABS: ALT 44 U/L (16-63); AST 23 U/L (15-37); Albumin 2.8 g/dL (3.4-5.0); Alkaline Phosphatase 149 U/L (46-116); Anion Gap 10.8 mmol/L (3-11); BUN 27 mg/dL (7-18); Bilirubin, Total 0.2 mg/dL (0.2-1.0); C-Reactive Protein 2.02 mg/dL (<or=0.5); CO2 25.2 mmol/L (21.0-32.0); Chloride 102 mmol/L (98-107); Creatine Kinase 121 U/L (39-308); Glucose 83 mg/dL (74-106); Potassium 5.1 mmol/L (3.5-5.1); Sodium 138 mmol/L (136-145); Total Protein 6.6 g/dL (6.4-8.2)
== END 2023-09-09 13:53 | disposition home or self-care (01) ==
LOC: LBN 13:52
PROVIDERS: PCP Family Medicine; Visit Provider Internal Medicine Infectious Disease
DX: E11.69 Type 2 diabetes mellitus with other specified complication (principal)
CPT/HCPCS: 80053; 82550; 85025; 86140

== ENCOUNTER 2023-11-18 15:19 | Outpatient (REF) | payer BC, SELFPAY ==
[2023-11-18 17:04] LABS: ALT 32 U/L (16-63); AST 28 U/L (15-37); Albumin 3.2 g/dL (3.4-5.0); Alkaline Phosphatase 161 U/L (46-116); Anion Gap 9.1 mmol/L (3-11); BUN 34 mg/dL (7-18); Bilirubin, Total 0.1 mg/dL (0.2-1.0); C-Reactive Protein 1.15 mg/dL (<or=0.5); CO2 25.9 mmol/L (21.0-32.0); CREATININE 1.2 mg/dL (0.70-1.30); Calcium 8.9 mg/dL (8.5-10.1); Chloride 105 mmol/L (98-107); Creatine Kinase 188 U/L (39-308); Estimated GFR 68.38 (mL/min/1.73m2); Glucose 98 mg/dL (74-106); Potassium 5.8 mmol/L (3.5-5.1); Sodium 140 mmol/L (136-145)
[2023-11-18 17:53] LABS: Abs Immature Grans 0.17 10^3/uL (0.0-0.06); Absolute Basophil Count 0.07 10^3/uL (0.0-0.2); Absolute Eosinophil Count 0.48 10^3/uL (0.0-0.7); Absolute Lymphocyte Count 1.89 10^3/uL (1.2-3.4); Absolute Monocyte Count 1.32 10^3/uL (0.1-0.8); Absolute Neutrophil Count 9.86 10^3/uL (1.2-6.7); Basophils % 0.5; Eosinophils % 3.5; HCT 30.6 % (40.0-50.0); HGB 9.6 g/dL (13.5-17.5); Immature Grans % 1.2; Lymphocytes % 13.7; MCH 25.9 pg (27.0-33.0); MCHC 31.4 % (32.0-36.0); MCV 83 fL (80-95); MPV 8.7 fL (8.0-11.0); Monocytes % 9.6; Neutrophils % 71.5; Platelet Count 484 10^3/uL (130-400); RBC 3.71 10^6/uL (4.36-5.78); RDW 18.6 % (11.8-14.1); RDW-SD 56.3 fL; WBC 13.79 10^3/uL (4.4-10.8)
== END 2023-11-18 15:20 | disposition home or self-care (01) ==
LOC: LBN 15:19
PROVIDERS: PCP Family Medicine; Visit Provider Internal Medicine Infectious Disease
DX: Z79.2 Long term (current) use of antibiotics (principal); M86.172 Other acute osteomyelitis, left ankle and foot
CPT/HCPCS: 80053; 82550; 85025; 86140

== ENCOUNTER 2023-11-25 14:38 | Outpatient (REF) | payer BC, SELFPAY ==
[2023-11-25 15:49] LABS: Abs Immature Grans 0.07 10^3/uL (0.0-0.06); Absolute Basophil Count 0.05 10^3/uL (0.0-0.2); Absolute Eosinophil Count 0.17 10^3/uL (0.0-0.7); Absolute Lymphocyte Count 1.47 10^3/uL (1.2-3.4); Basophils % 0.3; Eosinophils % 1.1; HCT 32.3 % (40.0-50.0); HGB 9.9 g/dL (13.5-17.5); Immature Grans % 0.4; Lymphocytes % 9.3; MCH 25.2 pg (27.0-33.0); MCHC 30.7 % (32.0-36.0); MCV 82 fL (80-95); MPV 8.8 fL (8.0-11.0); Monocytes % 8.7; Neutrophils % 80.2; Platelet Count 371 10^3/uL (130-400); RBC 3.93 10^6/uL (4.36-5.78); RDW 17.8 % (11.8-14.1); RDW-SD 53.9 fL; WBC 15.78 10^3/uL (4.4-10.8)
[2023-11-25 15:53] LABS: Absolute Monocyte Count 1.37 10^3/uL (0.1-0.8); Absolute Neutrophil Count 12.66 10^3/uL (1.2-6.7)
[2023-11-25 16:33] LABS: ALT 32 U/L (16-63); AST 26 U/L (15-37); Albumin 3.3 g/dL (3.4-5.0); Alkaline Phosphatase 147 U/L (46-116); Anion Gap 10.3 mmol/L (3-11); BUN 34 mg/dL (7-18); Bilirubin, Total 0.2 mg/dL (0.2-1.0); C-Reactive Protein 0.51 mg/dL (<or=0.5); CO2 24.7 mmol/L (21.0-32.0); CREATININE 1.1 mg/dL (0.70-1.30); Calcium 8.8 mg/dL (8.5-10.1); Chloride 104 mmol/L (98-107); Creatine Kinase 158 U/L (39-308); Glucose 153 mg/dL (74-106); Potassium 5.5 mmol/L (3.5-5.1); Sodium 139 mmol/L (136-145); Total Protein 6.9 g/dL (6.4-8.2)
== END 2023-11-25 14:39 | disposition home or self-care (01) ==
LOC: LBN 14:38
PROVIDERS: PCP Family Medicine; Visit Provider Internal Medicine Infectious Disease
DX: Z79.2 Long term (current) use of antibiotics (principal); M86.172 Other acute osteomyelitis, left ankle and foot; L08.9 Local infection of the skin and subcutaneous tissue, unspecified; D47.2 Monoclonal gammopathy
CPT/HCPCS: 80053; 82550; 85025; 86140

== ENCOUNTER 2023-12-02 16:12 | Outpatient (REF) | payer BC, SELFPAY ==
[2023-12-02 18:38] LABS: Abs Immature Grans 0.06 10^3/uL (0.0-0.06); Absolute Eosinophil Count 0.33 10^3/uL (0.0-0.7); Absolute Monocyte Count 1.29 10^3/uL (0.1-0.8); Basophils % 0.3; Eosinophils % 2.3; HCT 31.3 % (40.0-50.0); HGB 9.5 g/dL (13.5-17.5); Immature Grans % 0.4; Lymphocytes % 11.7; MCH 25.3 pg (27.0-33.0); MCHC 30.4 % (32.0-36.0); MCV 84 fL (80-95); MPV 8.8 fL (8.0-11.0); Neutrophils % 76.3; Platelet Count 285 10^3/uL (130-400); RBC 3.75 10^6/uL (4.36-5.78); RDW 18.1 % (11.8-14.1); RDW-SD 55.2 fL; WBC 14.31 10^3/uL (4.4-10.8)
[2023-12-02 18:43] LABS: Absolute Basophil Count 0.04 10^3/uL (0.0-0.2); Absolute Lymphocyte Count 1.67 10^3/uL (1.2-3.4); Absolute Neutrophil Count 10.92 10^3/uL (1.2-6.7)
[2023-12-02 19:15] LABS: ALT 35 U/L (16-63); AST 27 U/L (15-37); Albumin 3.3 g/dL (3.4-5.0); Alkaline Phosphatase 147 U/L (46-116); Anion Gap 7.5 mmol/L (3-11); BUN 32 mg/dL (7-18); Bilirubin, Total 0.2 mg/dL (0.2-1.0); C-Reactive Protein 0.75 mg/dL (<or=0.5); CO2 26.5 mmol/L (21.0-32.0); CREATININE 1.1 mg/dL (0.70-1.30); Calcium 8.8 mg/dL (8.5-10.1); Chloride 106 mmol/L (98-107); Creatine Kinase 202 U/L (39-308); Glucose 195 mg/dL (74-106); Sodium 140 mmol/L (136-145)
[2023-12-02 19:26] LABS: Potassium 6.3 mmol/L (3.5-5.1)
== END 2023-12-02 16:13 | disposition home or self-care (01) ==
LOC: LBN 16:12
PROVIDERS: PCP Family Medicine; Visit Provider Internal Medicine Infectious Disease
DX: R05.9 Cough, unspecified (principal)
CPT/HCPCS: 80053; 82550; 85025; 86140; 87070; 87205

== ENCOUNTER 2023-12-09 18:07 | Outpatient (REF) | payer BC, SELFPAY ==
[2023-12-09 16:51] LABS: Abs Immature Grans 0.06 10^3/uL (0.0-0.06); Absolute Basophil Count 0.04 10^3/uL (0.0-0.2); Absolute Eosinophil Count 0.21 10^3/uL (0.0-0.7); Absolute Lymphocyte Count 1.44 10^3/uL (1.2-3.4); Absolute Monocyte Count 0.94 10^3/uL (0.1-0.8); Absolute Neutrophil Count 7.53 10^3/uL (1.2-6.7); Basophils % 0.4 %; Eosinophils % 2.1 %; HCT 27.4 % (40.0-50.0); HGB 8.4 g/dL (13.5-17.5); Immature Grans % 0.6 %; Lymphocytes % 14.1 %; MCH 24.9 pg (27.0-33.0); MCHC 30.7 % (32.0-36.0); MCV 81 fL (80-95); MPV 9.3 fL (8.0-11.0); Monocytes % 9.2 %; Neutrophils % 73.6 %; Platelet Count 331 10^3/uL (130-400); RBC 3.37 10^6/uL (4.36-5.78); RDW 17.7 % (11.8-14.1); RDW-SD 52.8 fL; WBC 10.22 10^3/uL (4.4-10.8)
[2023-12-09 17:07] LABS: ALT 29 U/L (16-63); AST 27 U/L (15-37); Albumin 3.5 g/dL (3.4-5.0); Alkaline Phosphatase 129 U/L (46-116); Anion Gap 9.5 mmol/L (3-11); BUN 32 mg/dL (7-18); Bilirubin, Total 0.2 mg/dL (0.2-1.0); C-Reactive Protein 0.92 mg/dL (<or=0.5); CO2 26.5 mmol/L (21.0-32.0); CREATININE 1.2 mg/dL (0.70-1.30); Chloride 102 mmol/L (98-107); Creatine Kinase 440 U/L (39-308); Estimated GFR 68.38 (mL/min/1.73m2); Glucose 319 mg/dL (74-106); Potassium 5.7 mmol/L (3.5-5.1); Sodium 138 mmol/L (136-145); Total Protein 6.9 g/dL (6.4-8.2)
== END 2023-12-09 18:08 | disposition home or self-care (01) ==
LOC: LBN 18:07
PROVIDERS: PCP Family Medicine; Visit Provider Internal Medicine Infectious Disease
DX: Z79.2 Long term (current) use of antibiotics (principal); M86.172 Other acute osteomyelitis, left ankle and foot; L08.9 Local infection of the skin and subcutaneous tissue, unspecified
CPT/HCPCS: 80053; 82550; 85025; 86140

== ENCOUNTER 2023-12-13 11:20 | Outpatient (REF) | payer BC, OTHER, SELFPAY ==
[2023-12-13 11:33] LABS: Creatine Kinase 194 U/L (39-308)
== END 2023-12-13 11:21 | disposition home or self-care (01) ==
LOC: LBN 11:20
PROVIDERS: PCP Family Medicine; Visit Provider Internal Medicine Infectious Disease
DX: Z79.2 Long term (current) use of antibiotics (principal); M86.172 Other acute osteomyelitis, left ankle and foot; L08.9 Local infection of the skin and subcutaneous tissue, unspecified; K75.81 Nonalcoholic steatohepatitis (NASH)
CPT/HCPCS: 82550

== ENCOUNTER 2023-12-16 16:01 | Outpatient (REF) | payer BC, OTHER, SELFPAY ==
[2023-12-16 17:27] LABS: Abs Immature Grans 0.06 10^3/uL (0.0-0.06); Absolute Basophil Count 0.05 10^3/uL (0.0-0.2); Absolute Eosinophil Count 0.34 10^3/uL (0.0-0.7); Absolute Lymphocyte Count 1.93 10^3/uL (1.2-3.4); Absolute Monocyte Count 1.39 10^3/uL (0.1-0.8); Basophils % 0.4 %; Eosinophils % 2.6 %; HCT 27.9 % (40.0-50.0); HGB 8.8 g/dL (13.5-17.5); Immature Grans % 0.5 %; Lymphocytes % 14.9 %; MCH 25.5 pg (27.0-33.0); MCHC 31.5 % (32.0-36.0); MCV 81 fL (80-95); MPV 8.9 fL (8.0-11.0); Monocytes % 10.7 %; Neutrophils % 70.9 %; Platelet Count 398 10^3/uL (130-400); RBC 3.45 10^6/uL (4.36-5.78); RDW 17.4 % (11.8-14.1); RDW-SD 51.7 fL; WBC 12.98 10^3/uL (4.4-10.8)
[2023-12-16 17:38] LABS: ALT 33 U/L (16-63); AST 26 U/L (15-37); Albumin 3.2 g/dL (3.4-5.0); Alkaline Phosphatase 125 U/L (46-116); Anion Gap 9.3 mmol/L (3-11); BUN 49 mg/dL (7-18); Bilirubin, Total 0.2 mg/dL (0.2-1.0); C-Reactive Protein 1.26 mg/dL (<or=0.5); CO2 24.7 mmol/L (21.0-32.0); CREATININE 1.8 mg/dL (0.70-1.30); Calcium 8.8 mg/dL (8.5-10.1); Chloride 105 mmol/L (98-107); Creatine Kinase 219 U/L (39-308); Estimated GFR 42.03 (mL/min/1.73m2); Glucose 127 mg/dL (74-106); Potassium 5.5 mmol/L (3.5-5.1); Sodium 139 mmol/L (136-145); Total Protein 6.6 g/dL (6.4-8.2)
== END 2023-12-16 16:02 | disposition home or self-care (01) ==
LOC: LBN 16:01
PROVIDERS: PCP Family Medicine; Visit Provider Internal Medicine Infectious Disease
DX: L08.89 Other specified local infections of the skin and subcutaneous tissue (principal); M86.172 Other acute osteomyelitis, left ankle and foot; Z79.2 Long term (current) use of antibiotics
CPT/HCPCS: 80053; 82550; 85025; 86140

== ENCOUNTER 2023-12-20 19:34 | Emergency (ER) | payer BC, OTHER, SELFPAY ==
[2023-12-20] VITALS (10 sets, daily range): BP systolic 132–164; BP diastolic 57–95; PULSE 98–117; RESP 18; TEMP 37.7–39.2; O2SAT 96
[2023-12-20] MEDS: Normal Saline 1,000 ML 1000 ML IV (19:29)
--- NOTE | 2023-12-20 19:34 | ED.GENADUL_ITS ---
Discharge Plan Disposition Patient Disposition: Against Medical Advice Condition: Serious Discharge Details Clinical Impression: Fever, Acute osteomyelitis of left foot Primary Care Provider: Vera Enamorado ED Provider: Malathi Cintron Home Meds and New Rx's Prescriptions: Continued duloxetine [Cymbalta] 30 mg capsule,delayed release(DR/EC) 30 mg PO BID Rx Instructions: one in the morning, two in the evening insulin lispro [Humalog U-100 Insulin] 100 unit/mL solution 80 unit SUBCUT DAILY Rx Instructions: via PUMP metformin 1,000 mg tablet 1,000 mg PO DAILY fluticasone propionate 50 mcg/actuation spray,suspension 2 spray intranasal DAILY Rx Instructions: administer into each nostril lidocaine 5 % adhesive patch,medicated 1 patch topical DAILY Rx Instructions: leave on most painful area for up to 12 hrs daptomycin 350 mg recon soln 550 mg IV DAILY Rx Instructions: administer over 30 mins clopidogrel [Plavix] 75 mg tablet 75 mg PO DAILY amlodipine 10 mg tablet 10 mg PO DAILY ipratropium-albuterol 0.5 mg-3 mg(2.5 mg base)/3 mL solution for nebulization 3 ml inhalation Q4H PRN ferrous gluconate 324 mg (37.5 mg iron) tablet 324 mg PO DAILY aspirin [Adult Low Dose Aspirin] 81 mg tablet,delayed release (DR/EC) 81 mg PO DAILY ondansetron 4 mg tablet,disintegrating 4 mg PO Q8H PRN Motegrity 2 mg tablet 2 mg PO DAILY enalapril maleate 20 mg tablet 20 mg PO DAILY bupropion HCl 150 mg tablet sustained-release 12 hr 150 mg PO BID insulin glargine [Lantus Solostar U-100 Insulin] 100 unit/mL (3 mL) insulin pen 12 unit subcut DAILY PRN Rx Instructions: if pump fails glucagon 1 mg kit 1 mg IM ONCE PRN polyethylene glycol 3350 [Miralax] 17 gram/dose powder 17 g PO BID PRN albuterol sulfate [Ventolin HFA] 90 mcg/actuation HFA aerosol inhaler 2 puff inhalation Q4H PRN fluticasone propionate 110 mcg/actuation HFA aerosol inhaler 2 puff inhalation BID naltrexone 50 mg Tablet 4.5 mg PO DAILY acetaminophen [Tylenol Arthritis Pain] 650 mg Tablet Extended Release 650 mg PO BID simvastatin [Zocor] 20 mg Tablet 20 mg PO QPM pregabalin [Lyrica] 100 mg Capsule 100 mg PO BID Trulicity 1.5 mg/0.5 mL Pen Injector 1.5 mg SUBCUT QWEEK ibuprofen 800 mg tablet 800 mg PO QID PRN (Reason: pain) Qty: 60 0RF omeprazole 20 mg capsule,delayed release(DR/EC) 20 mg PO PRN PRN Discharge Instructions Instructions: Fever in Adults (ED) Additional Instructions: At this time you have expressed the desire to leave AGAINST MEDICAL ADVICE. You do understand that this could result in disability or worsening of your condition up to including . Please follow-up with your primary care provider and/or [facility] for further evaluation and care. If you start getting worse over the weekend fever over 100.8, fever chills confusion nausea vomiting diarrhea please return to the ER for further care. At this time it appears you still have the osteomyelitis in your left foot. You may take Tylenol or ibuprofen when you get home. You were last given Tylenol around 7:00 this evening. Follow up with primary care provider in 3-5 days. Return to ED sooner if any worsening or concerns. Please take Tylenol or Ibuprofen with food every 4-6 hours as needed for pain and swelling. Referrals: [facility] [Outside] - 3 days Jonny-Vera JOSE [Primary Care Provider] - 3 days HPI General Mode of arrival: EMS . Date/Time Provider Initiated Documentation: 12/20/23 19:52 . Limitations to Documentation: no limitations . Information obtained by: patient, RN notes reviewed and old records reviewed . HPI Narrative: 62-year-old male presents to the ER via EMS with a chief complaint of fever, dizziness that began today. He does have a history of cellulitis diabetic foot infections he does have dressings on to his bilateral lower feet reports that he just finished daptomycin infusion course today via his PICC line in his left upper extremity reports that he began with chills and dizziness. He also endorses a tickle in his throat and dry cough. He presents tachycardic febrile with a temp of 39.2 slightly hypertensive with blood pressure 164/68. The past medical history includes hyperlipidemia, pulmonary hypertension, sleep apnea, insulin-dependent diabetes, osteomyelitis renal insufficiency and peripheral vascular disease. Related Data Home Medications Medication Instructions Recorded Confirmed acetaminophen 650 mg 650 mg PO BID pain 08/27/18 08/26/20 tablet,extended release (Tylenol Arthritis Pain) dulaglutide 1.5 mg/0.5 mL 1.5 mg subcut QWEEK 08/27/18 08/26/20 subcutaneous pen injector (Trulicity) naltrexone 50 mg tablet 4.5 mg PO DAILY 08/27/18 08/26/20 pregabalin 100 mg capsule (Lyrica) 100 mg PO BID 08/27/18 08/26/20 simvastatin 20 mg tablet (Zocor) 20 mg PO QPM 08/27/18 08/26/20 ibuprofen 800 mg tablet 800 mg PO QID PRN pain #60 tabs 08/29/18 08/24/20 omeprazole 20 mg capsule,delayed 20 mg PO PRN PRN 01/19/20 08/26/20 release albuterol sulfate 90 mcg/actuation 2 puff inhalation Q4H PRN 12/03/23 aerosol inhaler (Ventolin HFA) amlodipine 10 mg tablet 10 mg PO DAILY 12/03/23 aspirin 81 mg tablet,delayed 81 mg PO DAILY 12/03/23 release (Adult Low Dose Aspirin) bupropion HCl 150 mg tablet,12 hr 150 mg PO BID 12/03/23 sustained-release clopidogrel 75 mg tablet (Plavix) 75 mg PO DAILY 12/03/23 daptomycin 350 mg intravenous 550 mg IV DAILY 12/03/23 solution duloxetine 30 mg capsule,delayed 30 mg PO BID 12/03/23 release (Cymbalta) enalapril maleate 20 mg tablet 20 mg PO DAILY 12/03/23 ferrous gluconate 324 mg (37.5 mg 324 mg PO DAILY 12/03/23 iron) tablet fluticasone propionate 110 2 puff inhalation BID 12/03/23 mcg/actuation HFA aerosol inhaler fluticasone propionate 50 2 spray intranasal DAILY 12/03/23 mcg/actuation nasal spray,suspension glucagon 1 mg injection kit 1 mg IM ONCE PRN 12/03/23 insulin glargine 100 unit/mL (3 12 unit subcut DAILY PRN 12/03/23 mL) subcutaneous pen (Lantus Solostar U-100 Insulin) insulin lispro 100 unit/mL 80 unit subcut DAILY 12/03/23 subcutaneous solution (Humalog U-100 Insulin) ipratropium 0.5 mg-albuterol 3 mg 3 ml inhalation Q4H PRN 12/03/23 (2.5 mg base)/3 mL nebulization soln lidocaine 5 % topical patch 1 patch topical DAILY 12/03/23 metformin 1,000 mg tablet 1,000 mg PO DAILY 12/03/23 ondansetron 4 mg disintegrating 4 mg PO Q8H PRN 12/03/23 tablet polyethylene glycol 3350 17 17 g PO BID PRN 12/03/23 gram/dose oral powder (Miralax) prucalopride 2 mg tablet 2 mg PO DAILY 12/03/23 (Motegrity) Previous Rx's Medication Instructions Recorded ibuprofen 800 mg tablet 800 mg PO QID PRN pain #60 tabs 08/29/18 Allergies Allergy/AdvReac Type Severity Reaction Status Date / Time vancomycin Allergy Severe throat Unverified 12/20/23 19:18 symptoms Penicillins Allergy unknown Unverified 12/20/23 19:18 General Stated Complaint: Fever JEANNETTE: 3 Review of Systems All systems reviewed & are unremarkable except as noted in HPI and below Constitutional Constitutional: Reports as per HPI, Reports chills, Reports fever(s) and Reports weakness ENT Ears, Nose, Mouth, and Throat: Reports dizziness Neurologic Neurologic: Reports dizziness and Reports weakness Exam Narrative Exam Narrative: Constitutional: Alert and oriented x3. Appears stated age. Normal body habitus. Patient appears chronically ill, pale has an insulin pump. Head: Normocephalic, no trauma. Eyes: Pupils PERRL, Red reflex noted, EOM's intact. Eyelids symmetrical without lesions, discharge, or swelling. ENT: Bilateral TM's WNL, External ear normal to inspection, no mastoid TTP, swelling, or erythema, Nasal turbinates WNL, no nasal discharge. Normal dentition, Posterior pharynx WNL, no exudate. Chest: RRR, Normal S1, S2, distal pulses intact. Resp: Lungs clear to auscultation bilaterally, no wheezes, rales, or rhonchi. Abdomen: Soft, non-distended, Normoactive bowel sounds all 4 quads. Nontender to palpation all 4 quadrants. Patient reports constipation. Musculoskeletal: Normal gait, Moves all 4 extremities without difficulty. Skin: See extremity assessment below patient's bilateral feet has had multiple amputations noted. Neurologic: Cranial nerves II-XII intact. Alert and oriented x 3. Motor: No deficits noted. Decree sensation of bilateral feet. Hematologic/Lymphatic: No ecchymosis, no lymphadenopathy. Extrem Right lower extremity: foot (Previous amputated toes, no evidence of erythema or induration) Left lower extremity: foot (Patient does have an open wound noted midfoot where he had previous amputat) Ankle/foot/toe images: 2 1. Previously amputated 2. Previously amputated 3. Wound noted, appears chronic, no drainage noted Course Vital Signs Vital signs: Vital Signs Temperature 39.2 C H 12/20/23 19:09 Pulse 117 H 12/20/23 19:09 Respiratory Rate 18 12/20/23 19:09 Blood Pressure 164/68 H 12/20/23 19:09 Pulse Oximetry 96 12/20/23 19:09 Temperature 39.2 C H 12/20/23 19:09 Temperature Source Oral 12/20/23 19:09 Pulse 117 H 12/20/23 19:09 Respiratory Rate 18 12/20/23 19:09 Respiratory Effort Normal 12/20/23 19:15 Blood Pressure 164/68 H 12/20/23 19:09 Pulse Oximetry 96 12/20/23 19:09 Oxygen Delivery Method Room Air 12/20/23 19:09 Oxygen Flow Rate 0 12/20/23 19:09 Pain Level 2 12/20/23 19:09 Lab/Test Results Lab/Test Results: 12/20/23 19:19 Blood Blood Culture - Pending 12/20/23 19:19 Blood Blood Culture - Pending Medical Decision Making 62-year-old male presents to the ER via EMS with a chief complaint of fever, dizziness that began today. He does have a history of cellulitis diabetic foot infections he does have dressings on to his bilateral lower feet reports that he just finished daptomycin infusion course today via his PICC line in his left upper extremity reports that he began with chills and dizziness. He also endorses a tickle in his throat and dry cough. He presents tachycardic febrile with a temp of 39.2 slightly hypertensive with blood pressure 164/68. The past medical history includes hyperlipidemia, pulmonary hypertension, sleep apnea, insulin-dependent diabetes, osteomyelitis renal insufficiency and peripheral vascular disease. Septic workup ordered including CBC CMP lactic acid, blood cultures x 2, fluid chest x-ray liter of normal saline 500 mg of Tylenol IV. CBC shows white blood cells of 17.29, hemoglobin 8.8 hematocrit 27.8 which appears to be patient's baseline however there is a left shift, lactate 1.6 slightly high sodium 135 potassium 5.5 which is at patient's baseline, BUN 36 creatinine 1.3 glucose 204 magnesium slightly low at 1.7 alk phos 147 albumin 3.3. Urinalysis shows trace blood 5-10 RBCs negative leukocytes or nitrites. COVID flu and RSV is pending at this time. Chest x-ray ordered and feet x-ray. An additional culture ordered from PICC line. 2053: Spoke with Dr. Raygoza regarding patient case and details he requests I consult with [facility] ID prior to admission here since patient is known to them. 2112: [facility] Transfer center paged, 2203: Spoke again with transfer center, awaiting call back. 2223: Patient requesting to leave AGAINST MEDICAL ADVICE. He reports that he is tired of waiting for [facility] to call back, he is going to try to manage the fever at home. I did encourage him to stay and discussed the risks and benefits he verbalizes understanding family is at bedside. Patient requesting to leave AMA. The patient appears clinically sober and is not under the influence of any known substances. Discussed risks and benefits with patient. Patient verbalizes understanding of situation and the risks of leaving including worsening condition, developing disability, including but not limited to . Discussed results of labs and imaging, if they were performed and recommendations for further treatment and/or observation. The patient verbalizes understanding of the results discussed. Every effort was made to involve family and situation discussed. At this time patient has opted to leave against medical advice. Patient is alert and oriented and has the capacity to make own decisions. This text was generated using [employer] system, please disregard any oddities of phrase or misspellings. Medical Records Medical records reviewed: Yes I reviewed the patient's medical records. Imaging Data Radiologic Study: Imaging: X-Ray Radiologist's impression: Exam: XR Chest Exam date and time: 12/20/2023 7:47 PM Age: 62 years old Clinical indication: Fever and other: Weakness; Patient HX: Fever, weakness TECHNIQUE: Imaging protocol: Radiologic exam of the chest. Views: 1 view. COMPARISON: No relevant prior studies available. FINDINGS: Tubes, catheters and devices: Left arm PICC terminates in the medial most brachiocephalic vein versus upper SVC. Lungs: No consolidation. Pleural spaces: No pleural effusion. No pneumothorax. Heart/Mediastinum: No cardiomegaly. Bones/joints: Bilateral chronic healed rib deformities. No acute appearing bony pathology. IMPRESSION: Left arm PICC terminates in the medial most brachiocephalic vein versus upper SVC. The lungs are clear. Dictated and Authenticated by: Olimpia Corado MD. Lab Data Lab results reviewed: Yes I reviewed the patient's lab results. Labs: 12/20/23 20:52 Blood Blood Culture - Pending 12/20/23 19:38 Blood Blood Culture - Pending 12/20/23 19:28 Blood Blood Culture - Pending Laboratory Tests Range/Units 12/20/23 12/20/23 12/20/23 19:28 19:38 20:10 WBC (4.4-10.8) 10^3/uL 17.29 H RBC (4.36-5.78) 10^6/uL 3.50 L Hgb (13.5-17.5) g/dL 8.8 L Hct (40.0-50.0) % 27.8 L MCV (80-95) fL 79 L MCH (27.0-33.0) pg 25.1 L MCHC (32.0-36.0) % 31.7 L RDW (11.8-14.1) % 16.8 H Plt Count (130-400) 10^3/uL 290 MPV (8.0-11.0) fL 8.5 Immature Gran % % 0.6 Neutrophils % % 89.1 Lymphocytes % % 3.6 Monocytes % % 6.2 Eosinophils % % 0.3 Basophils % % 0.2 Nucleated RBC % (0.0-0.3) % 0.0 Absolute Neutrophils (1.2-6.7) 10^3/uL 15.41 H Absolute Lymphocytes (1.2-3.4) 10^3/uL 0.62 L Absolute Monocytes (0.1-0.8) 10^3/uL 1.07 H Absolute Eosinophils (0.0-0.7) 10^3/uL 0.05 Absolute Basophils (0.0-0.2) 10^3/uL 0.03 PT (9.1-11.1) sec 10.7 INR (0.9-1.1) 1.1 APTT (23.6-32.8) sec 32.7 VBG Lactate (0.6-1.4) mmol/L 1.6 H Sodium (136-145) mmol/L 135 L Potassium (3.5-5.1) mmol/L 5.5 H Chloride (98-107) mmol/L 101 Carbon Dioxide (21.0-32.0) mmol/L 23.6 Anion Gap (3-11) mmol/L 10.4 BUN (7-18) mg/dL 36 H Creatinine (0.70-1.30) mg/dL 1.3 Est GFR (CKD-EPI 2020) (mL/min/1.73m2) 62.11 Glucose (74-106) mg/dL 204 H Calcium (8.5-10.1) mg/dL 8.6 Magnesium (1.8-2.4) mg/dL 1.7 L Total Bilirubin (0.2-1.0) mg/dL 0.2 AST (15-37) U/L 29 ALT (16-63) U/L 35 Alkaline Phosphatase (46-116) U/L 147 H Total Protein (6.4-8.2) g/dL 7.2 Albumin (3.4-5.0) g/dL 3.3 L Urine Color (Yellow) Yellow Urine Clarity (Clear) Clear Urine pH (5-8) 6.0 Ur Specific [place] (1.005-1.025) >= 1.030 H Urine Protein (Neg-Trace) mg/dL 100 H Urine Ketones (Negative) mg/dL Negative Urine Blood (Negative) Trace-intact H Urine Nitrite (Negative) Negative Urine Bilirubin (Negative) Negative Urine Urobilinogen (Up to 0.2) mg/dL 0.2 Ur Leukocyte Esterase (Negative) Negative Urine RBC (0-2) HPF 5-10 H Urine WBC (0-5) HPF 0-2 Ur Epithelial Cells (Negative) HPF Rare Urine Crystals (Negative) HPF Negative Urine Bacteria (Negative) HPF Rare Urine Casts (Negative) LPF Negative Urine Mucus (Negative) Negative Ur Culture Indicated? No Urine Glucose (Negative) mg/dL 500 H COVID-19 Source Nasopharynx SARS-CoV-2 (PCR) (Negative) Negative Influenza Type A (PCR) (Negative) Negative Influenza Type B (PCR) (Negative) Negative RSV (PCR) (Negative) Negative Quality:SDOH Health Related Social Needs: 2 No Data to Display PFSH All Active Problems (Updated 12/20/23 @ 22:26 by Malathi Cintron NP) Acute osteomyelitis of left foot (Acute) Fever (Acute) Hoarseness (Acute) Fracture tibia/fibula (Acute ~08/2018) Myopia of left eye (Acute) Myopia of right eye (Acute) History of vitrectomy (Chronic) s/p vitrectomy/membrane peel left eye Diabetic peripheral neuropathy (Chronic) Diabetes type I (Chronic) Medical History HLD (hyperlipidemia) Erectile dysfunction Monoclonal paraproteinemia Dupuytren's contracture MURRAY (nonalcoholic steatohepatitis) Osteopenia Pulmonary hypertension Sleep apnea HTN (hypertension) Constipation RETANA (dyspnea on exertion) Iron deficiency anemia Adjustment disorder with depressed mood Alkaline phosphatase elevation Renal insufficiency PVD (peripheral vascular disease) Fever Acute cough Leukocytosis Amputated toe of right foot Osteomyelitis Depression pt. denies this Surgical History History of cataract surgery History of amputation of toe 08/15/20 Right 4th toe 03/2021 Left great toe 03/2023 Right great toe 08/2023 History of repair of right rotator cuff History of reconstruction of anterior cruciate ligament tear RIGHT ACL and PCL reconstruction 10/2014 History of laparoscopic appendectomy Family History Father Prostate cancer Diabetes Social History Smoking/Tobacco Use Status: Never Smoking risk assessment performed?: Yes Alcohol Intake: current Alcohol Intake frequency: a few times a month Alcohol type: beer Drug use: Occasionally Substance use type: marijuana Do you feel safe at home: Yes
[2023-12-20 19:36] LABS: Lactate 1.6 mmol/L (0.6-1.4)
[2023-12-20 19:38] LABS: Absolute Basophil Count 0.03 10^3/uL (0.0-0.2); Absolute Eosinophil Count 0.05 10^3/uL (0.0-0.7); Absolute Lymphocyte Count 0.62 10^3/uL (1.2-3.4); Absolute Monocyte Count 1.07 10^3/uL (0.1-0.8); Absolute Neutrophil Count 15.41 10^3/uL (1.2-6.7); Basophils % 0.2 %; Eosinophils % 0.3 %; HCT 27.8 % (40.0-50.0); HGB 8.8 g/dL (13.5-17.5); Immature Grans % 0.6 %; Lymphocytes % 3.6 %; MCH 25.1 pg (27.0-33.0); MCHC 31.7 % (32.0-36.0); MCV 79 fL (80-95); MPV 8.5 fL (8.0-11.0); Monocytes % 6.2 %; Neutrophils % 89.1 %; Platelet Count 290 10^3/uL (130-400); RDW 16.8 % (11.8-14.1); RDW-SD 48.5 fL; WBC 17.29 10^3/uL (4.4-10.8)
[2023-12-20 19:54] LABS: ALT 35 U/L (16-63); AST 29 U/L (15-37); Albumin 3.3 g/dL (3.4-5.0); Alkaline Phosphatase 147 U/L (46-116); Anion Gap 10.4 mmol/L (3-11); BUN 36 mg/dL (7-18); Bilirubin, Total 0.2 mg/dL (0.2-1.0); CO2 23.6 mmol/L (21.0-32.0); CREATININE 1.3 mg/dL (0.70-1.30); Calcium 8.6 mg/dL (8.5-10.1); Chloride 101 mmol/L (98-107); Estimated GFR 62.11 (mL/min/1.73m2); Glucose 204 mg/dL (74-106); INR 1.1 (0.9-1.1); Magnesium 1.7 mg/dL (1.8-2.4); PTT Activated 32.7 sec (23.6-32.8); Potassium 5.5 mmol/L (3.5-5.1); Prothrombin Time 10.7 sec (9.1-11.1); Sodium 135 mmol/L (136-145); Total Protein 7.2 g/dL (6.4-8.2)
--- NOTE | 2023-12-20 19:54 | DI.RAD_ITS ---
Exam(s) XR PORTABLE CHEST AP EXAM: XR PORTABLE CHEST AP CLINICAL HISTORY: fEVER, wEAKNESS. TECHNIQUE: 2D digital imaging was performed. COMPARISON: No exams were available for comparison FINDINGS: Single AP portable view. Heart size is upper normal. The mediastinum is not widened. Lungs are clear. No infiltrates nor obvious pleural effusions. Distal tip of the left PICC line is at the junction of the innominate vein and SVC. Multiple healed bilateral rib fractures are noted. IMPRESSION: No acute pulmonary findings on this single AP portable view of the chest. Distal tip of left-sided PICC line is at the junction of the innominate vein and SVC. DATA REPOSITORY: RADIATION DOSE DELIVERED:
[2023-12-20 20:17] LABS: Bilirubin Negative (Negative); Blood Trace-intact (Negative); Clarity Clear (Clear); Glucose 500 mg/dL (Negative); Ketones Negative (Negative); Leukocyte Esterase Negative (Negative); Nitrite Negative (Negative); Specific Gravity >= 1.030 (1.005-1.025); Urobilinogen 0.2 mg/dL (Up to 0.2)
[2023-12-20 20:19] LABS: Bacteria Rare HPF (Negative); C & S Indicated? No; Casts Negative LPF (Negative); Crystals Negative HPF (Negative); Epithelial Cells Rare HPF (Negative); Mucus Negative (Negative); WBC 0-2 HPF (0-5)
[2023-12-20 20:24] LABS: COVID-19 PCR Negative (Negative); Influenza A PCR Negative (Negative); Influenza B PCR Negative (Negative); RSV PCR Negative (Negative)
[2023-12-20 20:25] LABS: Source Nasopharynx
--- NOTE | 2023-12-20 20:25 | DI.VRAD_ITS ---
PROCEDURE INFORMATION: Exam: XR Chest Exam date and time: 12/20/2023 7:47 PM Age: 62 years old Clinical indication: Fever and other: Weakness; Patient HX: Fever, weakness TECHNIQUE: Imaging protocol: Radiologic exam of the chest. Views: 1 view. COMPARISON: No relevant prior studies available. FINDINGS: Tubes, catheters and devices: Left arm PICC terminates in the medial most brachiocephalic vein versus upper SVC. Lungs: No consolidation. Pleural spaces: No pleural effusion. No pneumothorax. Heart/Mediastinum: No cardiomegaly. Bones/joints: Bilateral chronic healed rib deformities. No acute appearing bony pathology. IMPRESSION: Left arm PICC terminates in the medial most brachiocephalic vein versus upper SVC. The lungs are clear. Dictated and Authenticated by: Olimpia Corado MD. Ordering:HAILE Servin MD
[2023-12-20] MEDS: Heparin 500 UNITS/5 ML SYRINGE (21:00)
--- NOTE | 2023-12-20 21:30 | DI.RAD_ITS ---
Exam(s) XR FOOT LT COMPLETE EXAM: XR FOOT LT COMPLETE CLINICAL HISTORY: Infection, R/O Osteo. TECHNIQUE: 2D digital imaging was performed. COMPARISON: RF XR tib/fib RT from 08/28/2018 FINDINGS: 3 views There are 2 transmetatarsal amputations of the 1st and 2nd toes. There is some periostitis finding a round the 2nd metatarsal diaphysis. Skin ulcers are seen in the medial forefoot. More proximal mehreen culations in the foot as well as the tarsometatarsal joints appear unremarkable. IMPRESSION: Soft tissue ulcers distal medial foot. Periosteal bone formation in the diaphysis the amputated 2nd metatarsal noted. This can be seen with osteomyelitis. The however, the distal most aspect of the a mputated stump of the 2nd metatarsal appears sharp. If clinically indicated follow-up MRI can be performed for added sensitivity and specificity with res pect osteomyelitis. DATA REPOSITORY: RADIATION DOSE DELIVERED:
--- NOTE | 2023-12-20 21:31 | DI.RAD_ITS ---
Exam(s) XR FOOT RT COMPLETE EXAM: XR FOOT RT COMPLETE CLINICAL HISTORY: Infection, R/O Osteo. TECHNIQUE: 2D digital imaging was performed. COMPARISON: None FINDINGS: 3 views There are transmetatarsal amputations of all 5 toes. There is no gas in the soft tissues. Third, 4th, and 5th bone edges appear unremarkable. Fragmented calcific densities are seen adjacent to the distal aspects of the amputations of the 1st and 2nd met atarsals. No true erosions. Tarsometatarsal joints appear unremarkable as do the articulations more proximally in the foot and a long intramedullary ministerio is again noted in the tibia. IMPRESSION: As above. If clinically indicated follow-up MRI can be performed if there is high suspicion for oste omyelitis. DATA REPOSITORY: RADIATION DOSE DELIVERED:
--- NOTE | 2023-12-20 21:36 | DI.VRAD_ITS ---
PROCEDURE INFORMATION: Exam: XR Right Foot Exam date and time: 12/20/2023 9:16 PM Age: 62 years old Clinical indication: Other: Infection, R/O osteo; Prior surgery; Surgery date: 6+ months; Surgery type: Amputation of all toes 1+ years ago TECHNIQUE: Imaging protocol: Radiologic exam of the right foot. Views: 3 or more views. COMPARISON: CT lower extremity RT wo 08/27/2018 5:44 PM FINDINGS: Bones/joints: Tibial IM ministerio and screws, intact as visualized. The bones are demineralized. Mild chronic degenerative and neuropathic changes in the midfoot. Posterior calcaneal spur. No acute fracture or subluxation. Soft tissues: Generalized soft tissue swelling. Transmetatarsal amputations with irregular periostitis particularly about 1st and 2nd metatarsal stumps. Vasculature: Atherosclerosis. IMPRESSION: Transmetatarsal amputations with mildly irregular periostitis particularly about 1st and 2nd metatarsal stumps. Possible chronic osteomyelitis at these locations. Dictated and Authenticated by: Olimpia Corado MD. Ordering:HAILE Servin MD
--- NOTE | 2023-12-20 21:37 | DI.VRAD_ITS ---
PROCEDURE INFORMATION: Exam: XR Left Foot Exam date and time: 12/20/2023 9:14 PM Age: 62 years old Clinical indication: Other: Infection, R/O osteo; Prior surgery; Surgery date: 1-6 months; Surgery type: Amputation of first and second toe TECHNIQUE: Imaging protocol: Radiologic exam of the left foot. Views: 3 or more views. COMPARISON: No relevant prior studies available. FINDINGS: Bones/joints: The bones are demineralized. First and 2nd transmetatarsal amputations. Periostitis, 2nd metatarsal diaphysis. Chronic healed deformity 3rd metatarsal head and neck essentially anatomic. Mild degenerative changes in midfoot. Soft tissues: Extensive swelling worse in the medial forefoot were large ulcer is present. Vasculature: Atherosclerosis. IMPRESSION: 1. First and 2nd transmetatarsal amputations. 2. Periostitis, 2nd metatarsal diaphysis, likely acute osteomyelitis. 3. Additional chronic findings as described. Dictated and Authenticated by: Olimpia Corado MD. Ordering:HAILE Servin MD
--- NOTE | 2023-12-21 08:12 | ED.FU.B_ITS ---
Date of service: 12/21/23 Time of Service: 08:12 Follow Up Plan: Patient's blood cultures that he had drawn yesterday growing gram-positive cocci and gram-negative rods. Chart reviewed he was here yesterday for a fever and also has a known source of infection from his foot which he has seen ID and also gets other treatment at [facility]. I called and discussed with the patient on the phone he was alert and oriented on the phone, speaking clearly in no distress states he feels well, has no fevers and no significant pain. He says the PICC line was removed right ear yesterday. I did recommend that he come back for at least repeat blood cultures and other blood test and possible admission for IV antibiotics. He says he will consider this and also will discuss it with his ID doctors at [facility]. He understands the risks of worsening infection including loss of limb and possible potential for prolonged permanent disability requiring chronic rehab and fdc placement, and possible . He has decision-making capacity from talking to him over the phone and per chart review.
== END 2023-12-20 22:38 | disposition left against medical advice (07) ==
PROVIDERS: Emergency Provider Registered Nurse Emergency; PCP Family Medicine
DX: E11.69 Type 2 diabetes mellitus with other specified complication (principal); M86.171 Other acute osteomyelitis, right ankle and foot; I10 Essential (primary) hypertension; I73.9 Peripheral vascular disease, unspecified; E78.5 Hyperlipidemia, unspecified; I27.20 Pulmonary hypertension, unspecified; G47.30 Sleep apnea, unspecified; N28.9 Disorder of kidney and ureter, unspecified; Z79.02 Long term (current) use of antithrombotics/antiplatelets; Z79.4 Long term (current) use of insulin; Z79.85 Long-term (current) use of injectable non-insulin antidiabetic drugs; Z95.828 Presence of other vascular implants and grafts; Z89.412 Acquired absence of left great toe; Z89.411 Acquired absence of right great toe; Z89.422 Acquired absence of other left toe(s); Z89.421 Acquired absence of other right toe(s); Z53.29 Procedure and treatment not carried out because of patient's decision for other reasons
CPT/HCPCS: 80053; 87040; 87077; 87637; 96374; 99284; 71045; 73630; 81003; 81015; 83605; 83735; 85025; 85610; 85730; 87186; J0131; J1642